=== PATIENT | female | born 1935 | race Caucasian/White ===

== ENCOUNTER → 2017-07-14 | Outpatient (CLI) | payer OTHER ==
--- NOTE | 2017-07-14 15:18 | MAMMOGRAPHY REPORT ---
BILATERAL DIGITAL SCREENING MAMMOGRAM WITH CAD: 07/14/2017 CLINICAL HISTORY: Routine screening. Patient has no complaints. TECHNIQUE: Bilateral CC and MLO views were obtained. Current study was also evaluated with a Compute r Aided Detection (CAD) system. COMPARISON: Comparison is made to exams dated: 07/08/2016 mammogram, 07/03/2015 mammogram, 01/04/2015 mammogram, 07/06/2014 mammogram, 06/30/2014 mammogram, and 06/29/2013 mammogram - [facility]. BREAST COMPOSITION: The tissue of both breasts is extremely dense, which lowers the sensitivity of m ammography. FINDINGS: Circular dense more markers overlie the left upper outer quadrant, and a linear dense scar marker overlies the right superior breast. There are moderate vascular calcifications bilaterally. A stable circumscribed benign mass in the right upper outer quadrant is stable dating back to at t 2009, therefore likely benign. No new suspicious mass, architectural distortion or cluster of micr ocalcifications is seen. IMPRESSION: ACR BI-RADS CATEGORY 1: NEGATIVE There is no mammographic evidence of malignancy. A 1 year screening mammogram is recommended. The pa tient will receive written notification of the results. Approximately 10% of breast cancers are not detected with mammography. A negative mammographic report should not delay biopsy if a clinically suggestive mass is present. Nai Winkler M.D. ay/:07/14/2017 13:47:52 Mechanical Maintenance Technician: Keira Reeves RT(R)(M)(BD), [facility] letter sent: Normal 1/2 BI-RADS Code: ACR BI-RADS Category 1: Negative
== END | disposition home or self-care (01) ==
LOC: C.MAMM 11:01
PROVIDERS: ATTEND Family Medicine
DX: Z12.31 Encounter for screening mammogram for malignant neoplasm of breast (principal)

== ENCOUNTER 2018-03-26 10:02 | Inpatient (IN) | payer OTHER ==
[~2018-03-26] VITALS: Ht 154.9 cm; Wt 48.6 kg
[2018-03-26] MEDS ORDERED: SODIUM CHLORIDE 0.9% 1000ML 1,000 ML IV STA (10:18)
[2018-03-26 10:39] LABS: BASO % 0.2 %; BASO ABS # 0.01 K/uL (0-0.2); EOS % 2.2 %; EOS ABS # 0.11 K/uL (0-0.5); HEMATOCRIT 40.9 % (37-47); HEMOGLOBIN 14.1 g/dL (12.0-16.0); IG# 0.01 K/uL (0.00-0.02); LYMPH % 26.7 %; LYMPH ABS # 1.36 K/uL (1.2-3.4); MEAN CELL VOLUME 89.7 fL (80-100); MEAN CORPUSCULAR HEMOGLOBIN 30.9 pg (25-34); MEAN CORPUSCULAR HGB CONC 34.5 g/dl (32-36); MEAN PLATELET VOLUME 10.6 fL (7.4-10.4); MONO % 10.4 %; MONO ABS # 0.53 K/uL (0.11-0.59); NEUT % 60.3 %; NEUT ABS # 3.07 K/uL (1.4-6.5); PLATELET COUNT 250 K/uL (130-400); RED CELL DISTRIBUTION WIDTH CV 16.1 % (11.5-14.5); RED CELL DISTRIBUTION WIDTH SD 52.7 fL (36.4-46.3); WHITE BLOOD COUNT 5.09 K/uL (4.8-10.8)
[2018-03-26] MEDS ORDERED: ATV/1 PO (10:42)
[2018-03-26] MEDS ORDERED: PRT/20 PO (10:42)
[2018-03-26] MEDS ORDERED: SUCR1TAB29 PO ×2 (10:42)
[2018-03-26] MEDS ORDERED: TRAV0.00 OPB (10:42)
[2018-03-26] MEDS ORDERED: CALC667C4 PO (10:42)
[2018-03-26] MEDS ORDERED: SERT25TA PO (10:42)
[2018-03-26] MEDS ORDERED: ATOR10TA82 PO (10:42)
[2018-03-26] MEDS ORDERED: ATEN-173 PO (10:42)
[2018-03-26] MEDS ORDERED: MULTCAP33 PO (10:42)
[2018-03-26 11:06] LABS: ALBUMIN 3.8 gm/dl (3.4-5.0); CALCIUM 8.8 mg/dl (8.5-10.1); CREATININE 0.7 mg/dl (0.60-1.20); POTASSIUM 3.4 mmol/L (3.5-5.1); TOTAL PROTEIN 7.6 gm/dl (6.4-8.2)
--- NOTE | 2018-03-26 11:20 | DIAGNOSTIC IMAGING REPORT ---
ABDOMINAL ULTRASOUND, RIGHT UPPER QUADRANT HISTORY: jaundice/gall and pancrease . COMPARISON: None. FINDINGS: Pancreas: There are 2 hypoechoic masses seen within the head and body of the pancreas with the largest measuring 3.7 cm. The smaller mass at the body of the pancreas measures 2.7 cm. There appears to be proximal pancreatic duct dilatation at the tail. Liver: No hepatic masses. Moderate intrahepatic bile duct dilatation. Gallbladder: Borderline gallbladder wall thickening at 3 mm. There is sludge within the gallbladder lumen. CBD: Dilated up to 1.7 cm in diameter. Right kidney: No hydronephrosis. A 1.2 cm cyst. IMPRESSION: 1. There are 2 adjacent hypoechoic masses within the head and body the pancreas. This could represent primary pancreatic malignancy or metastatic disease. 2. Moderate to severe bile duct dilatation. 3. Borderline gallbladder wall thickening with gallbladder sludge. 4. Dedicated contrast-enhanced abdominal CT is recommended to evaluate the pancreatic masses. Electronically signed by: Sandro Canales M.D. 03/26/2018 11:18 AM Dictated Date/Time: 03/26/2018 11:14 AM
[2018-03-26 12:50] LABS: INR 1.1 (0.9-1.1)
[2018-03-26] MEDS ORDERED: OPTIRAY 320 IV PRN (13:00)
[2018-03-26] MEDS ORDERED: MULT-663 PO (13:27)
[2018-03-26] MEDS ORDERED: ACETAMINOPHEN 325 MG TAB PO PRN (13:30)
[2018-03-26] MEDS ORDERED: ONDANSETRON INJ 2 MG/ML 2 ML VIAL IV PRN (13:30)
[2018-03-26] MEDS ORDERED: POTASSIUM CHLORIDE 10 MEQ TABCR PO STA (13:31)
--- NOTE | 2018-03-26 14:07 | DIAGNOSTIC IMAGING REPORT ---
ABDOMINAL CT WITH AND WITHOUT INTRAVENOUS CONTRAST, PANCREAS PROTOCOL HISTORY: obstructive jaundice - please use pancreatic protocol TECHNIQUE: Multiaxial CT images of the abdomen were performed both before and after the intravenous administration of contrast to evaluate the pancreas. COMPARISON STUDY: Abdominal ultrasound 03/26/2018. FINDINGS: Infiltrative heterogeneous mass/masses within the pancreatic head and body containing a few areas of cystic/necrotic change. Total area of abnormality measures approximately 4.7 cm. Dominant cystic/necrotic focus within the pancreatic head measures 1.5 cm. This abuts and displaces the gastric antrum but does not appear to invade into the stomach. The proximal main pancreatic duct at the tail is dilated up to 6 mm due to the obstructive mass. There is also severe intra and extrahepatic bile duct dilatation with the common bile duct measuring 1.6 cm in diameter. The gallbladder is distended. There is mild gallbladder wall thickening. No significant peripancreatic lymphadenopathy. The superior mesenteric vein is partially compressed but remains patent. No soft tissue abnormality surrounding the superior mesenteric artery. The lung bases are clear. No suspicious lytic or blastic osseous lesions. No hepatic or splenic masses. The adrenal glands are unremarkable. Normal caliber abdominal aorta. The visualized loops of bowel show no wall thickening or obstruction. Mild inflammatory change surrounding the pancreatic head. Dominant cystic/necrotic focus within the pancreatic head measures 1.5 cm. There is a 1 cm right renal cyst. No hydronephrosis. IMPRESSION: 1. Confirmation of the infiltrative and heterogeneous mass/masses within the pancreatic head and body. This measures a total area of approximately 4.7 cm. This is highly suspicious for pancreatic adenocarcinoma. ERCP is recommended for further evaluation. 2. Severe intra and extra hepatic bile duct dilatation due to obstruction of the distal common bile duct from the pancreatic mass. 3. Distended gallbladder with mild gallbladder wall thickening. Electronically signed by: Sandro Canales M.D. 03/26/2018 2:06 PM Dictated Date/Time: 03/26/2018 1:53 PM
[2018-03-26] MEDS ORDERED: DORZ2SOL19 OP (14:16)
--- NOTE | 2018-03-26 14:29 | History and Physical ---
History & Physical Date & Time of Service: Mar 26, 2018 ~ 13:00 Chief Complaint: Jaundice Primary Care Physician: Elena Allred D.O. History of Present Illness 82-year-old female who presents the ED with jaundice. Patient reports her son initially noted the jaundice about 2 weeks ago however did not mention anything to her. Whenever he saw her last night, he noted the jaundice was much worse. 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 She reports she has been having upper abdominal pain for the past several months. She has been treated for GERD. She reports a 20 pound weight loss over the past 10 years and more recently 5 pounds over the past 3 months. She feels like her appetite has been okay. She has been eating blander foods secondary to being diagnosed with GERD. She has chronic loose stools and has noted that her stools have been white over the past few days. She denies nausea vomiting. Abdominal pain will sometimes radiate up into the chest however patient denies other forms of chest pain and shortness of breath. No lightheadedness, dizziness, diaphoresis, syncopal events. No fevers chills. She denies any urinary symptoms. In the ED, patient was found to have a transaminitis. Liver US showing 2 adjacent hypoechoic masses within the head and body the pancreas, Moderate to severe bile duct dilatation, Borderline gallbladder wall thickening with gallbladder sludge. Patient was given IVF. GI has already evaluated the patient in the ED. Past Medical/Surgical History Medical Problems: (1) Depression Status: Chronic (2) Dyslipidemia Status: Chronic (3) Glaucoma Status: Chronic (4) Hypertension Status: Chronic (5) Macular degeneration Status: Chronic (6) mucinous pancreatic cyst Status: Chronic (7) Osteoporosis Status: Chronic Surgical Problems: (1) H/O dilation and curettage Status: Chronic (2) H/O umbilical hernia repair Status: Chronic (3) History of appendectomy Status: Chronic (4) Hx of tonsillectomy Status: Chronic (5) S/P tubal ligation Status: Chronic Family History FH: breast cancer SISTER SISTER FH: leukemia SISTER FH: lung cancer BROTHER FH: pancreatic cancer SISTER Social History Smoking Status: Never Smoker Alcohol Use: none Immunizations History of Influenza Vaccine: Yes Influenza Vaccine Date: May 19, 2017 History of Tetanus Vaccine?: Yes Tetanus Immunization Date: Nov 26, 2017 History of Pneumococcal: Yes Pneumococcal Date: Feb 28, 1961 Allergies Coded Allergies: Lisinopril (Unverified Adverse Reaction, Unknown, cough , 03/26/18) Home Medications Scheduled Atenolol (Tenormin), 12.5 MG PO QAM Atorvastatin (Lipitor), 10 MG PO HS Dorzolamide Hcl (Trusopt Oph), 1 DROPS OP BID Lorazepam (Ativan), 1 MG PO HS Multiple Minerals W/ Vitamins (Citracal Plus), 1 TAB PO DAILY Multiple Vitamins W/ Minerals (Preservision Areds), 1 CAP PO DAILY Pantoprazole (Protonix), 20 MG PO DAILY Sertraline (Zoloft), 25 MG PO DAILY Sucralfate (Carafate), 1 GM PO TIDM Sucralfate (Carafate), 1 GM PO HS Travoprost (Travatan Z), 1 DROPS OPB HS Review of Systems ROS per HPI, all other systems reviewed and negative Physical Exam Vital Signs Date Time Temp Pulse Resp B/P (MAP) Pulse Ox O2 Delivery O2 Flow Rate FiO2 03/26/18 13:18 177/95 96 03/26/18 12:02 67 19 201/115 96 Room Air 03/26/18 11:40 219/94 03/26/18 10:06 36.6 61 18 205/95 98 Room Air General Appearance: no apparent distress, + thin Head: normocephalic, atraumatic Eyes: normal inspection, EOMI, + pertinent finding (Sclera icterus) ENT: hearing grossly normal, + pertinent finding (Mucous members dry) Neck: supple, no JVD, trachea midline Respiratory/Chest: lungs clear, normal breath sounds, no respiratory distress Cardiovascular: regular rate, rhythm, no edema, normal peripheral pulses Abdomen/GI: normal bowel sounds, soft, no organomegaly, + tenderness (Upper abdomen) Extremities/Musculoskelatal: normal inspection, no calf tenderness, normal capillary refill Neurologic/Psych: no motor/sensory deficits, alert, normal mood/affect, oriented x 3 Skin: warm/dry, + jaundice Diagnostics Laboratory Results Results Past 24 Hours Test 03/26/18 10:25 03/26/18 12:26 Range/Units White Blood Count 5.09 4.8-10.8 K/uL Red Blood Count 4.56 4.2-5.4 M/uL Hemoglobin 14.1 12.0-16.0 g/dL Hematocrit 40.9 37-47 % Mean Corpuscular Volume 89.7 80-100 fL Mean Corpuscular Hemoglobin 30.9 25-34 pg Mean Corpuscular Hemoglobin Concent 34.5 32-36 g/dl Platelet Count 250 130-400 K/uL Mean Platelet Volume 10.6 7.4-10.4 fL Neutrophils (%) (Auto) 60.3 % Lymphocytes (%) (Auto) 26.7 % Monocytes (%) (Auto) 10.4 % Eosinophils (%) (Auto) 2.2 % Basophils (%) (Auto) 0.2 % Neutrophils # (Auto) 3.07 1.4-6.5 K/uL Lymphocytes # (Auto) 1.36 1.2-3.4 K/uL Monocytes # (Auto) 0.53 0.11-0.59 K/uL Eosinophils # (Auto) 0.11 0-0.5 K/uL Basophils # (Auto) 0.01 0-0.2 K/uL RDW Standard Deviation 52.7 36.4-46.3 fL RDW Coefficient of Variation 16.1 11.5-14.5 % Immature Granulocyte % (Auto) 0.2 % Immature Granulocyte # (Auto) 0.01 0.00-0.02 K/uL Urine Color DK YELLOW Urine Appearance CLEAR CLEAR Urine pH 7.0 4.5-7.5 Urine Specific [place] 1.006 1.000-1.030 Urine Protein NEG NEG Urine Glucose (UA) NEG NEG Urine Ketones NEG NEG Urine Occult Blood NEG NEG Urine Nitrite NEG NEG Urine Bilirubin 2+ NEG Urine Urobilinogen NEG NEG Urine Leukocyte Esterase MODERATE NEG Urine WBC (Auto) 1-5 0-5 /hpf Urine RBC (Auto) 0-4 0-4 /hpf Urine Hyaline Casts (Auto) 1-5 0-5 /lpf Urine Epithelial Cells (Auto) 5-10 0-5 /lpf Urine Bacteria (Auto) NEG NEG Sodium Level 129 136-145 mmol/L Potassium Level 3.4 3.5-5.1 mmol/L Chloride Level 96 98-107 mmol/L Carbon Dioxide Level 27 21-32 mmol/L Anion Gap 6.0 3-11 mmol/L Blood Urea Nitrogen 7 7-18 mg/dl Creatinine 0.70 0.60-1.20 mg/dl Est Creatinine Clear Calc Drug Dose 46.7 ml/min Estimated GFR () 92.9 Estimated GFR (Non- 80.1 BUN/Creatinine Ratio 9.8 10-20 Random Glucose 93 70-99 mg/dl Calcium Level 8.8 8.5-10.1 mg/dl Total Bilirubin 11.5 0.2-1 mg/dl Direct Bilirubin 9.5 0-0.2 mg/dl Aspartate Amino Transf (AST/SGOT) 247 15-37 U/L Alanine Aminotransferase (ALT/SGPT) 314 12-78 U/L Alkaline Phosphatase 583 45-117 U/L Total Protein 7.6 6.4-8.2 gm/dl Albumin 3.8 3.4-5.0 gm/dl Lipase 453 73-393 U/L Prothrombin Time 11.4 9.0-12.0 SECONDS Prothromb Time International Ratio 1.1 0.9-1.1 Diagnostic Radiology LIVER US IMPRESSION: 1. There are 2 adjacent hypoechoic masses within the head and body the pancreas. This could represent primary pancreatic malignancy or metastatic disease. 2. Moderate to severe bile duct dilatation. 3. Borderline gallbladder wall thickening with gallbladder sludge. 4. Dedicated contrast-enhanced abdominal CT is recommended to evaluate the pancreatic masses. Impression Assessment and Plan TRANSAMINITIS HISTORY OF MUCINOUS PANCREATIC CYST -Admit to [facility] -Patient presenting from home with reports of jaundice; patient with history of mucinous pancreatic cyst; in the ED, found to have transaminitis and liver US showing pancreatic masses in moderate to bile duct dilatation -Consider choledocholithiasis versus obstruction from mass -Case discussed with Emerita Nguyen PA-C -planning on CT ABD/pelvis today and ERCP tomorrow -Clear liquids, n.p.o. after midnight HYPERTENSION -BP elevated, possibly due to pain and anxiety however will increase atenolol from 12.5 mg daily to 25 mg daily GERD -Continue PPI and Carafate DYSLIPIDEMIA -Holding statin due to transaminitis CODE STATUS -Patient is a full code as per my discussion with her. DVT PROPHYLAXIS -SCDs due to invasive procedure tomorrow DISPOSITION -In my clinical judgment this beneficiary meets acute admission criteria, established by [facility], that includes being hospitalized through two midnights. Attending addendum: The patient was seen and examined in the emergency room She was noticed to have jaundiced for the last 1 week Her only complaints were pain in the epigastrium that sometime goes to the left shoulder but no nausea no vomiting no problem with bowel habit She was noted to have obstructive secondary to pancreatic mass On examination Yellow coloration of the sclera and skin No apparent distress Hemodynamically stable Chest-clear to auscultate bilaterally Heart-S1-S2 no murmur Abdomen-tender epigastrium and right upper quadrant No definite mass, bowel sounds present Extremities-no edema [employer]ER-alert ,awake and oriented 3 No focal neuro deficit Admission labs and imaging studies reviewed Has obstructive jaundice secondary to pancreatic mass with a history of mucinous pancreatic cyst under observation GI consulted for ERCP and further evaluation of the mass Agree with assessment and plan as outlined above Dr. Nicolas Andrade Resuscitation Status VTE Prophylaxis Will order VTE Prophylaxis: Yes
--- NOTE | 2018-03-26 15:03 | Gastrointestinal Consultation ---
Gastrointestinal Consultation Date of Consultation: Mar 26, 2018 Attending Physician: Italia Rodriguez Consulting Physician: America Field MD Reason for Consultation: Pancreatic mass/obstructive jaundice History of Present Illness Patient is an 82 year old female with a hx of pancreatic IPMN and dilated pancreatic duct, typically followed in our clinic by Britton Winston NP, and Dr. Zenon Colon. She was last seen in clinic 01/01/18 and at that time was doing fairly well, complaining of only intermittent abdominal pain, improved with Protonix, once daily. Over the past 2-3 months, she has been having increased abdominal pain, radiating to the right shoulder and into the back, worse post prandially, and her PPI was increased, and carafate was added. This has not provided relief. Work up was ordered, to include labs and a RUQ ultrasound, scheduled for 04/01/18, however she was at the doctor's office with her as he had an appointment, and asked to see a nurse as she was still not feeling well. The nurse sent her to the ED as she appeared significantly jaundiced. Work up in the ED thus far included labs and an abdominal ultrasound. LFTs are elevated, with an AST of 247, ALT of 314, ALP of 583, Tbili of 11.5 and Dbili of 9.5. Lipase is 453. Ultrasound showed 2 adjacent masses at the head and body of the pancreas, moderate to severe biliary ductal dilation to 1.7cm, borderline gb wall thickening and gb sludge. LFTs in December were normal. MRI of the pancreas 12/11/17: Persistent dilatation of the pancreatic duct diffusely with possible side branch IPMNs in the pancreatic tail, similar to prior exam. Pancreas duct dilation to 9.6 mm EUS 05/13/17: A hypoechoic lesion suggestive of a cyst was identified in the~pancreatic neck. It communicates with the pancreatic duct. The lesion measured 15 mm by 10 mm in maximal cross-sectional diameter. There was a single compartment without septae. The outer wall of the lesion wasthin. There was no associated mass. There was no internal debris withinthe fluid-filled cavity. The PD was mildly dilated upstream of the cyst,5 mm in the body. Diagnostic needle aspiration for fluid was performed. Patient reports a 2+ month hx of epigastric abdominal pain, radiating to the right shoulder and into the back. She denies any significant n/v or heartburn. Bowels are moving regularly, however they have been penny colored for the past 7- 10 days. Urine is a little darker than normal by her admission as well. Jaundice has been noticeable per family for almost 2 weeks. She denies any fevers. Poor appetite and +weight loss of 5+ pounds over the past few weeks as well. Past Medical/Surgical History Past Medical History: Pancreatic IPMN, HTN, glaucoma, macular degeneration, OP, insomnia Past Surgical History: Umbilical hernia repair, Tonsillectomy, appendectomy, tubal ligation, D&C Family History FH: breast cancer SISTER SISTER FH: leukemia SISTER FH: lung cancer BROTHER FH: pancreatic cancer SISTER Social History Smoking Status: Never Smoker Allergies Coded Allergies: Lisinopril (Unverified Adverse Reaction, Unknown, cough , 03/26/18) Current Medications Home Meds and Scripts Medications Dose Route/Sig Max Daily Dose Days Date Category Trusopt Oph (Dorzolamide Hcl) 2 % [place] 1 Drops OP BID 03/26/18 Reported Citracal Plus (Multiple Minerals W/ Vitamins) 1 Tab Tab 1 Tab PO DAILY 03/26/18 Reported Carafate (Sucralfate) 1 Gm Tab 1 Gm PO HS 03/26/18 Reported Carafate (Sucralfate) 1 Gm Tab 1 Gm PO TIDM 03/26/18 Reported Zoloft (Sertraline HCl) 25 Mg Tab 25 Mg PO DAILY 03/26/18 Reported Ativan (Lorazepam) 1 Mg Tab 1 Mg PO HS 03/26/18 Reported Travatan Z (Travoprost) 0.004 % Gaudencio 1 Drops OPB HS 03/26/18 Reported Lipitor (Atorvastatin Calcium) 10 Mg Tab 10 Mg PO HS 03/26/18 Reported Tenormin (Atenolol) 25 Mg Tab 12.5 Mg PO QAM 03/26/18 Reported Protonix (Pantoprazole Sodium) 20 Mg Tab 20 Mg PO DAILY 03/26/18 Reported Preservision Areds (Multiple Vitamins W/ Minerals) 1 Cap Cap 1 Cap PO DAILY 03/26/18 Reported Review of Systems Constitutional: + weight loss, No fever, No chills Eyes: No worsening of vision, No eye pain ENT: + hearing loss Respiratory: No cough, No shortness of breath Cardiac: No chest pain Abdomen: + see HPI Musculoskeletal: No joint pain, No muscle pain Female : No dysuria Neuro: No memory loss Psych: No problem reported Heme: No abnormal bleeding/bruising Endo: No excessive thirst, No excessive urination Skin: No rash, No itch Physical Exam Date Time Temp Pulse Resp B/P (MAP) Pulse Ox O2 Delivery O2 Flow Rate FiO2 03/26/18 14:22 70 201/93 96 03/26/18 13:18 177/95 96 03/26/18 12:02 67 19 201/115 96 Room Air 03/26/18 11:40 219/94 03/26/18 10:06 36.6 61 18 205/95 98 Room Air General Appearance: no apparent distress Eyes: + pertinent finding (icterus) ENT: + pertinent finding (mild hearing loss) Neck: supple Respiratory/Chest: lungs clear, normal breath sounds, no respiratory distress Cardiovascular: regular rate, rhythm Abdomen: normal bowel sounds, soft, + tenderness (epigastric) Extremities: no pedal edema Neurologic/Psych: alert Skin: + jaundice Laboratory Results Last 24 Hours Test 03/26/18 10:25 03/26/18 12:26 White Blood Count 5.09 K/uL Red Blood Count 4.56 M/uL Hemoglobin 14.1 g/dL Hematocrit 40.9 % Mean Corpuscular Volume 89.7 fL Mean Corpuscular Hemoglobin 30.9 pg Mean Corpuscular Hemoglobin Concent 34.5 g/dl Platelet Count 250 K/uL Mean Platelet Volume 10.6 fL Neutrophils (%) (Auto) 60.3 % Lymphocytes (%) (Auto) 26.7 % Monocytes (%) (Auto) 10.4 % Eosinophils (%) (Auto) 2.2 % Basophils (%) (Auto) 0.2 % Neutrophils # (Auto) 3.07 K/uL Lymphocytes # (Auto) 1.36 K/uL Monocytes # (Auto) 0.53 K/uL Eosinophils # (Auto) 0.11 K/uL Basophils # (Auto) 0.01 K/uL RDW Standard Deviation 52.7 fL RDW Coefficient of Variation 16.1 % Immature Granulocyte % (Auto) 0.2 % Immature Granulocyte # (Auto) 0.01 K/uL Urine Color DK YELLOW Urine Appearance CLEAR Urine pH 7.0 Urine Specific [place] 1.006 Urine Protein NEG Urine Glucose (UA) NEG Urine Ketones NEG Urine Occult Blood NEG Urine Nitrite NEG Urine Bilirubin 2+ Urine Urobilinogen NEG Urine Leukocyte Esterase MODERATE Urine WBC (Auto) 1-5 /hpf Urine RBC (Auto) 0-4 /hpf Urine Hyaline Casts (Auto) 1-5 /lpf Urine Epithelial Cells (Auto) 5-10 /lpf Urine Bacteria (Auto) NEG Sodium Level 129 mmol/L Potassium Level 3.4 mmol/L Chloride Level 96 mmol/L Carbon Dioxide Level 27 mmol/L Anion Gap 6.0 mmol/L Blood Urea Nitrogen 7 mg/dl Creatinine 0.70 mg/dl Est Creatinine Clear Calc Drug Dose 46.7 ml/min Estimated GFR () 92.9 Estimated GFR (Non- 80.1 BUN/Creatinine Ratio 9.8 Random Glucose 93 mg/dl Calcium Level 8.8 mg/dl Magnesium Level 2.0 mg/dl Total Bilirubin 11.5 mg/dl Direct Bilirubin 9.5 mg/dl Aspartate Amino Transf (AST/SGOT) 247 U/L Alanine Aminotransferase (ALT/SGPT) 314 U/L Alkaline Phosphatase 583 U/L Total Protein 7.6 gm/dl Albumin 3.8 gm/dl Lipase 453 U/L Prothrombin Time 11.4 SECONDS Prothromb Time International Ratio 1.1 Impression Patient is an 82 year old female with a hx of pancreatic IPMN, stable on MRI just in December of this year. EUS in May/2017 with FNA. Presenting with obstructive jaundice - elevated LFTs and imaging showing a significantly enlarged CBD along with biliary sludge. Plan -CT scan a/p with contrast will be obtained -Monitor and correct electrolytes as appropriate -clear liquid diet with NPO after midnight -ERCP with stent placement tomorrow morning. Will then plan EUS next week - if patient still admitted, will plan to do this on Friday. Otherwise, will bring patient back as an outpatient. I performed a history and physical examination of the patient, including specifically soft, nontender abdomen, I have discussed the patient's management with Theresa Nguyen PA-C. Please refer to the PA's note for the documented findings and plan of care. Obstructive Jaundice, normal WBC, no clinical cholangitis. No gallstones. Has IPMN in the past and imaging now suggestive of HOP malignancy. Will plan for ERCP tomorrow for biliary decompression. EUS on Friday for FNA of the mass. Correct electrolytes.
[2018-03-26 15:36] VITALS: BP 177/71; PULSE 61; TEMP 36.4; O2SAT 96; Ht 154.9 cm; Wt 48.6 kg
[2018-03-26] MEDS: SODIUM CHLORIDE 0.9% 1000ML 1,000 ML IV SCH (16:48)
[2018-03-26 17:15] VITALS: BP 194/95
--- NOTE | 2018-03-26 17:31 | EMERGENCY ROOM VISIT NOTE ---
History Report prepared by Donn: Nora Green Under the Supervision of: Dr. Shadi Lee D.O. First contact with patient: 10:09 Chief Complaint: GI ASSESSMENT Stated Complaint: JAUNDICE History of Present Illness The patient is a 82 year old female who presents to the Emergency Room with complaints of needing a GI assessment. She states she has been treated for GERD recently and saw her PCP 2 days ago. She told her PCP, Dr. Allred of [facility], about abdominal pain located under her rib cage, so an abdominal US was ordered for next week. Last night, the patient's son told her she looked jaundiced, and she was advised to come to the ED. Her states he has not noticed her yellowish coloring because "I'm too close to her". The patient has macular degeneration and states she can't see her reflection in the mirror. She denies any recent nausea, vomiting or urinary symptoms. She states she has not been eating fatty foods out of fear of making her pain worse. The patient notes she had a scope last year that showed "a cyst in one of my pancreatic ducts". She followed with JAC Donaldson, of [facility] afterwards. Source of History: patient Onset: [employer] Position: abdomen Timing: constant Associated Symptoms: + abdominal pain, No nausea, No vomiting, No urinary symptoms Review of Systems See HPI for pertinent positives & negatives. A total of 10 systems reviewed and were otherwise negative. Past Medical & Surgical Medical Problems: (1) Depression (2) Dyslipidemia (3) Glaucoma (4) Hypertension (5) Macular degeneration (6) mucinous pancreatic cyst (7) Osteoporosis Surgical Problems: (1) H/O dilation and curettage (2) H/O umbilical hernia repair (3) History of appendectomy (4) Hx of tonsillectomy (5) S/P tubal ligation Social History Smoking Status: Never Smoker Alcohol Use: none Drug Use: none Marital Status: Housing Status: lives with family Occupation Status: retired Current/Historical Medications Scheduled Atenolol (Tenormin), 12.5 MG PO QAM Atorvastatin (Lipitor), 10 MG PO HS Dorzolamide Hcl (Trusopt Oph), 1 DROPS OP BID Lorazepam (Ativan), 1 MG PO HS Multiple Minerals W/ Vitamins (Citracal Plus), 1 TAB PO DAILY Multiple Vitamins W/ Minerals (Preservision Areds), 1 CAP PO DAILY Pantoprazole (Protonix), 20 MG PO DAILY Sertraline (Zoloft), 25 MG PO DAILY Sucralfate (Carafate), 1 GM PO TIDM Sucralfate (Carafate), 1 GM PO HS Travoprost (Travatan Z), 1 DROPS OPB HS Allergies Coded Allergies: Lisinopril (Unverified Adverse Reaction, Unknown, cough , 03/26/18) Physical Exam Vital Signs Date Time Temp Pulse Resp B/P (MAP) Pulse Ox O2 Delivery O2 Flow Rate FiO2 03/26/18 13:18 177/95 96 03/26/18 12:02 67 19 201/115 96 Room Air 03/26/18 11:40 219/94 03/26/18 10:06 36.6 61 18 205/95 98 Room Air Physical Exam GENERAL: Sitting up in bed, alert, well appearing, well nourished, no distress, non-toxic EYE EXAM: Scleral icterus. OROPHARYNX: no exudate, no erythema, lips, buccal mucosa, and tongue normal and mucous membranes are moist NECK: supple, no nuchal rigidity, no adenopathy, non-tender LUNGS: Clear to auscultation. Normal chest wall mechanics HEART: no murmurs, S1 normal and S2 normal ABDOMEN: abdomen soft, minimal tenderness in RUQ, normo-active bowel sounds, no masses, no rebound or guarding. BACK: Back is symmetrical on inspection and there is no deformity, no midline tenderness, no CVA tenderness. SKIN: Diffuse jaundice throughout entire body. UPPER EXTREMITIES: upper extremities are grossly normal. LOWER EXTREMITIES: No pitting edema. NEURO EXAM: Normal sensorium, cranial nerves II-XII grossly intact, normal speech, no gross weakness of arms, no gross weakness of legs. Gross sensation intact. Medical Decision & Procedures ER Provider Diagnostic Interpretation: Radiology results as stated below per my review and the radiologist's interpretation: ABDOMINAL ULTRASOUND, RIGHT UPPER QUADRANT HISTORY: jaundice/gall and pancrease . COMPARISON: None. FINDINGS: Pancreas: There are 2 hypoechoic masses seen within the head and body of the pancreas with the largest measuring 3.7 cm. The smaller mass at the body of the pancreas measures 2.7 cm. There appears to be proximal pancreatic duct dilatation at the tail. Liver: No hepatic masses. Moderate intrahepatic bile duct dilatation. Gallbladder: Borderline gallbladder wall thickening at 3 mm. There is sludge within the gallbladder lumen. CBD: Dilated up to 1.7 cm in diameter. Right kidney: No hydronephrosis. A 1.2 cm cyst. IMPRESSION: 1. There are 2 adjacent hypoechoic masses within the head and body the pancreas. This could represent primary pancreatic malignancy or metastatic disease. 2. Moderate to severe bile duct dilatation. 3. Borderline gallbladder wall thickening with gallbladder sludge. 4. Dedicated contrast-enhanced abdominal CT is recommended to evaluate the pancreatic masses. Electronically signed by: Sandro Canales M.D. 03/26/2018 11:18 AM Laboratory Results 03/26/18 10:25 Red Blood Count 4.56, Mean Corpuscular Volume 89.7, Mean Corpuscular Hemoglobin 30.9, Mean Corpuscular Hemoglobin Concent 34.5, Mean Platelet Volume 10.6, Neutrophils (%) (Auto) 60.3, Lymphocytes (%) (Auto) 26.7, Monocytes (%) (Auto) 10.4, Eosinophils (%) (Auto) 2.2, Basophils (%) (Auto) 0.2, Neutrophils # (Auto ) 3.07, Lymphocytes # (Auto) 1.36, Monocytes # (Auto) 0.53, Eosinophils # (Auto ) 0.11, Basophils # (Auto) 0.01 03/26/18 10:25 Test 03/26/18 10:25 03/26/18 12:26 White Blood Count 5.09 K/uL (4.8-10.8) Red Blood Count 4.56 M/uL (4.2-5.4) Hemoglobin 14.1 g/dL (12.0-16.0) Hematocrit 40.9 % (37-47) Mean Corpuscular Volume 89.7 fL (80-100) Mean Corpuscular Hemoglobin 30.9 pg (25-34) Mean Corpuscular Hemoglobin Concent 34.5 g/dl (32-36) Platelet Count 250 K/uL (130-400) Mean Platelet Volume 10.6 fL (7.4-10.4) Neutrophils (%) (Auto) 60.3 % Lymphocytes (%) (Auto) 26.7 % Monocytes (%) (Auto) 10.4 % Eosinophils (%) (Auto) 2.2 % Basophils (%) (Auto) 0.2 % Neutrophils # (Auto) 3.07 K/uL (1.4-6.5) Lymphocytes # (Auto) 1.36 K/uL (1.2-3.4) Monocytes # (Auto) 0.53 K/uL (0.11-0.59) Eosinophils # (Auto) 0.11 K/uL (0-0.5) Basophils # (Auto) 0.01 K/uL (0-0.2) RDW Standard Deviation 52.7 fL (36.4-46.3) RDW Coefficient of Variation 16.1 % (11.5-14.5) Immature Granulocyte % (Auto) 0.2 % Immature Granulocyte # (Auto) 0.01 K/uL (0.00-0.02) Urine Color DK YELLOW Urine Appearance CLEAR (CLEAR) Urine pH 7.0 (4.5-7.5) Urine Specific [place] 1.006 (1.000-1.030) Urine Protein NEG (NEG) Urine Glucose (UA) NEG (NEG) Urine Ketones NEG (NEG) Urine Occult Blood NEG (NEG) Urine Nitrite NEG (NEG) Urine Bilirubin 2+ (NEG) Urine Urobilinogen NEG (NEG) Urine Leukocyte Esterase MODERATE (NEG) Urine WBC (Auto) 1-5 /hpf (0-5) Urine RBC (Auto) 0-4 /hpf (0-4) Urine Hyaline Casts (Auto) 1-5 /lpf (0-5) Urine Epithelial Cells (Auto) 5-10 /lpf (0-5) Urine Bacteria (Auto) NEG (NEG) Anion Gap 6.0 mmol/L (3-11) Est Creatinine Clear Calc Drug Dose 46.7 ml/min Estimated GFR () 92.9 Estimated GFR (Non- 80.1 BUN/Creatinine Ratio 9.8 (10-20) Calcium Level 8.8 mg/dl (8.5-10.1) Magnesium Level 2.0 mg/dl (1.8-2.4) Total Bilirubin 11.5 mg/dl (0.2-1) Direct Bilirubin 9.5 mg/dl (0-0.2) Aspartate Amino Transf (AST/SGOT) 247 U/L (15-37) Alanine Aminotransferase (ALT/SGPT) 314 U/L (12-78) Alkaline Phosphatase 583 U/L (45-117) Total Protein 7.6 gm/dl (6.4-8.2) Albumin 3.8 gm/dl (3.4-5.0) Lipase 453 U/L (73-393) Prothrombin Time 11.4 SECONDS (9.0-12.0) Prothromb Time International Ratio 1.1 (0.9-1.1) Laboratory results per my review. Medications Administered Medications (Trade) Dose Ordered Sig/Neil Route Start Time Stop Time Status Last Admin Dose Admin Sodium Chloride 1,000 ml @ 999 mls/hr Q1H1M STAT IV 03/26/18 10:18 03/26/18 11:18 DC 03/26/18 10:38 999 MLS/HR ED Course ED COURSE: Vital signs were reviewed and showed the patient is hypertensive. The patients medical record was reviewed The above diagnostic studies were performed and reviewed. ED treatments and interventions as stated above. 1012: The patient was evaluated in room B11B. A complete history and physical examination was performed. 1018: NSS 1000 ml @ 999 mls/hr IV. 1136: I discussed the patients case with F[facility] Felder, [facility]. The patient will be further evaluated. 1241: I discussed the patients case with JAC Bill, [facility]. The patient will be further evaluated. 1245: Upon reevaluation, the patient is resting comfortably. I discussed my findings with the patient and she understands and agrees with the treatment plan. Based on the patients age, coexisting illnesses, exam and lab findings the decision to treat as an inpatient was made. The patient remained stable while under my care. The patient will be evaluated for further management. Medical Decision Differential diagnoses includes but is not limited to gastritis, peptic ulcer disease, GERD, gallbladder disease, pancreatitis, small bowel obstruction, acute coronary syndrome, pericarditis, ischemic bowel, irritable bowel disease, irritable bowel syndrome, appendicitis, diverticulitis, malignancy, hernia, urinary tract infection, torsion, perforation, trauma, infectious. Patient is an 82-year-old female who presents the ER for epigastric abdominal pain. Upon presentation patient is jaundiced. CBC was unremarkable. Mild hyponatremia. Bilirubin was elevated at 12. Patient had transaminitis at 300. Alk phos was elevated as well. Lipase was 450. Previous scopes show that she had a pancreatic cyst. Ultrasound the right upper quadrant shows 2 masses within the head of the pancreas. There is severe bile duct dilation. Gallbladder was also thickened and distended. I favor that this is all secondary to the pancreatic head mass. Discuss with GI who evaluated the patient at bedside. Discussed within total medicine patient was admitted for further workup. Patient was hypertensive declined pain medications. Medication Reconcilliation Current Medication List: was personally reviewed by me Blood Pressure Screening Patient's blood pressure: Elevated blood pressure Blood pressure disposition: Referred to PCP Consults Time Called: 1132 Consulting Physician: FABI Felder [facility] Returned Call: 1136 I discussed the patients case with FABI Felder [facility]. The patient will be further evaluated. Additional Consults: Time Called: 1240 Consulted Physician: [facility] Returned Call: 1241 Additional Comments: I discussed the patients case with JAC iBll [facility]. The patient will be further evaluated. Impression Primary Impression: Pancreatic mass Additional Impressions: Transaminitis Elevated bilirubin Hypertension Scribe Attestation The scribe's documentation has been prepared under my direction and personally reviewed by me in its entirety. I confirm that the note above accurately reflects all work, treatment, procedures, and medical decision making performed by me. Departure Information Dispostion Being Evaluated By Hospitalist Referrals Elena Allred D.O. (PCP) Patient Instructions My [facility] Problem Qualifiers Additional Impressions: Hypertension Hypertension type: unspecified Qualified Codes: I10 - Essential (primary) hypertension
[2018-03-26] MEDS: SUCRALFATE 1 GM TAB PO SCH ×2 (17:35→21:13)
--- NOTE | 2018-03-26 17:58 | Anesthesiology Progress Note ---
Pre-OP Anesthesia Assessment Date of Note Mar 26, 2018. Review patient information reviewed, chart reviewed, labs reviewed, acceptable for surgery Notes Elderly female presents with obstructive jaundice and found to have a pancreatic mass. Scheduled for ERCP. PMH is significant for HTN, hyperlipidemia, GERD and depression. She has had general anesthesia in the past without problems. GA explained. She expressed understanding and signed informed consent. EKG requested as baseline and is pending.
[2018-03-26] MEDS ORDERED: HydrALAZINE HCL 20 MG/ML VIAL IV. PRN (18:45)
[2018-03-26] MEDS ORDERED: HydrALAZINE HCL 20 MG/ML VIAL ONE (19:33)
[2018-03-26 19:36] VITALS: BP 191/92; PULSE 58
[2018-03-26] MEDS: DORZOLAMIDE HCL 2% OPH SOLN 10 ML BTL OP SCH (19:45)
[2018-03-26] MEDS ORDERED: LORAZEPAM 0.5 MG TAB PO PRN (20:45)
[2018-03-26 21:02] VITALS: BP 158/77; PULSE 69
[2018-03-26] MEDS: HYDROmorphone INJ 0.5 MG/0.5 ML SYR IV PRN (21:12)
[2018-03-26] MEDS: TRAVOPROST Z 0.004% OPH SOLN 2.5 ML BTL OPB SCH (21:13)
[2018-03-26 23:07] VITALS: BP 125/66; PULSE 62; TEMP 36.7; O2SAT 95
[2018-03-27] MEDS: SODIUM CHLORIDE 0.9% 1000ML 1,000 ML IV SCH ×3 (02:40→23:38)
[2018-03-27] MEDS: HYDROmorphone INJ 0.5 MG/0.5 ML SYR IV PRN (02:45)
[2018-03-27 05:41] LABS: HEMATOCRIT 35.2 % (37-47); HEMOGLOBIN 12.2 g/dL (12.0-16.0); MEAN CELL VOLUME 88.9 fL (80-100); MEAN CORPUSCULAR HEMOGLOBIN 30.8 pg (25-34); MEAN CORPUSCULAR HGB CONC 34.7 g/dl (32-36); MEAN PLATELET VOLUME 10.2 fL (7.4-10.4); PLATELET COUNT 210 K/uL (130-400); WHITE BLOOD COUNT 4.68 K/uL (4.8-10.8)
[2018-03-27 06:12] LABS: ALBUMIN 2.9 gm/dl (3.4-5.0); CALCIUM 7.9 mg/dl (8.5-10.1); CREATININE 0.47 mg/dl (0.60-1.20); POTASSIUM 3.4 mmol/L (3.5-5.1)
[2018-03-27 06:14] LABS: TOTAL PROTEIN 5.9 gm/dl (6.4-8.2)
[2018-03-27 07:09] VITALS: BP 144/78; PULSE 73; TEMP 36.6; O2SAT 97
[2018-03-27] MEDS: SUCRALFATE 1 GM TAB PO SCH ×4 (08:00→21:44)
[2018-03-27] MEDS: PANTOprazole SOD 40 MG TAB PO SCH (08:03)
[2018-03-27] MEDS: SERTRALINE HCL 50 MG TAB PO SCH (08:04)
[2018-03-27] MEDS: DORZOLAMIDE HCL 2% OPH SOLN 10 ML BTL OP SCH ×2 (08:05→21:43)
[2018-03-27] MEDS ORDERED: POTASSIUM CHLR 10 MEQ / WTR 100 ML IV STA (08:08)
--- NOTE | 2018-03-27 09:22 | Clinical Documentation Query ---
CLINICAL DOCUMENTATION QUERY 82- y/o female with suspected pancreatic cancer. She states a 5 lbs weight loss over last 3 months. She in noted to be thin by assessment. In your clinical opinion is this patient being managed for: ( ) Severe malnutrition ( ) Moderated malnutrition ( ) Mild malnutrition ( x ) Not Agree ( ) Other explanation of clinical findings (No explanation is considered a No Response) ( ) Unable to determine ( ) Need to Discuss (Phone CDS or qliq) (No discussion is considered a No Response) The medical record reflects the following clinical findings, treatment, and risk factors. Clinical Indicators: As above. 18% loss in BM in 3 months Treatment: clear liquid diet, GI consult, Risk Factors: Age, cancer, Please clarify and document your clinical opinion in the progress notes and discharge summary. Terms such as "probable", "suspected", "likely", "questionable", "possible", or "still to be ruled out" are acceptable. IF IN AGREEMENT, YOU MUST DOCUMENT ABOVE DIAGNOSTIC STATEMENT IN DAILY PROGRESS NOTES AND DISCHARGE SUMMARY. This document is not part of the patient's record. Malnutrition Characteristics (2 of 6) in Acute Illness/Injury CHARACTERISTICS MODERATE MALNUTRITION SEVERE MALNUTRITION ENERGY INTAKE <75% of estimated energyrequirement for >7 days <50% of estimated energyrequirement for >5 days WEIGHT LOSS 1-2%/1 week 5%/1 month 7.5%/3 months >1-2%/1 week >5%/1 month >7.5%/3 months BODY FAT*loss of SQ fat from the orbits,triceps, or fat overlying the ribs MILD MODERATE MUSCLE MASS*muscle wasting at the temples,clavicles, shoulders, interosseousspaces,scapula, thigh, calf MILD MODERATE FLUID ACCUMULATION*localized or generalized edemaof the extremities, vulva, scrotumweight loss may be masked byedema MILD MODERATE-SEVERE DIRECTOR SALES AND [employer] MARKETING STRENGTH N/A measurably decreased perthe device's standards Malnutrition Characteristics (2 of 6) in Chronic Illness CHARACTERISTICS MODERATE MALNUTRITION SEVERE MALNUTRITION ENERGY INTAKE <75% of estimated energyrequirement for >1 month <75% of estimated energyrequirement for >1 month WEIGHT LOSS 5%/1 month 7.5%/3 months 10%/6 months 20%/1 year > 5%/1 month >7.5%/3 months >10%/6 months >20%/1 year BODY FAT*loss of SQ fat from the orbits,triceps, or fat overlying the ribs MILD SEVERE MUSCLE MASS*muscle wasting at the temples,clavicles, shoulders, interosseousspaces,scapula, thigh, calf MILD SEVERE FLUID ACCUMULATION*localized or generalized edemaof the extremities, vulva, scrotumweight loss may be masked byedema MILD SEVERE DIRECTOR SALES AND [employer] MARKETING STRENGTH N/A measurably decreased perthe device's standards Thank You, Sky Carrington RN [phone] & via qlicCONNECT
[2018-03-27] MEDS ORDERED: LABETALOL HCL IV 5 MG/ML 20ML IV PRN (09:30)
[2018-03-27] MEDS ORDERED: ATROPINE SULFATE 0.1 MG/ML 5ML SYR IV PRN (09:30)
[2018-03-27] MEDS ORDERED: EpHEDrine SULFATE INJ 50 MG/ML AMP IV PRN (09:30)
[2018-03-27] MEDS ORDERED: MEPERIDINE HCL 25 MG/ML CARP IV PRN (09:30)
[2018-03-27] MEDS ORDERED: FENTANYL CITRATE INJ 50 MCG/1 ML 2 ML VIAL IV PRN (09:30)
[2018-03-27] MEDS ORDERED: PHENYLEPHRINE 100MCG/ML 5ML SYR IV PRN (09:30)
[2018-03-27] MEDS ORDERED: ONDANSETRON INJ 2 MG/ML 2 ML VIAL IV PRN (09:30)
[2018-03-27] MEDS ORDERED: NALOXONE HCL 0.4 MG/1 ML VIAL/CARP IV PRN (09:30)
[2018-03-27] MEDS ORDERED: HYDROmorphone INJ 2 MG/ML SYR/VIAL IV PRN (09:30)
[2018-03-27] MEDS ORDERED: FLUMAZENIL 0.1 MG/1 ML 10 ML VIAL IV PRN (09:30)
--- NOTE | 2018-03-27 09:32 | Gastroenterology Progress Note ---
Progress Note Date of Service: Mar 27, 2018 Subjective Pt evaluation today including: conversation w/ patient, physical exam, chart review, lab review, review of studies Patient is to have an ERCP today. She reports ongoing epigastric pain, but otherwise is feeling well. Denies any n/v or heartburn. Vitals stable. NPO since last evening. Potassium still slightly low at 3.4. No leukocytosis. LFTs about the same. Review of Systems Constitutional: No fever, No chills Eyes: No worsening of vision, No eye pain ENT: No hearing loss, No sore throat Respiratory: No cough, No shortness of breath Cardiac: No chest pain Abdomen: + see HPI Musculoskeletal: No joint pain, No muscle pain Female : No dysuria Neuro: No memory loss Psych: No problem reported Heme: No abnormal bleeding/bruising Endo: No excessive thirst, No excessive urination Skin: No rash, No itch Medications Current Inpatient Medications Medications (Trade) Dose Ordered Sig/Neil Route Start Time Stop Time Status Last Admin Dose Admin Ioversol (Optiray 320) 100 ml UD PRN IV 03/26/18 13:00 03/30/18 12:59 Ondansetron HCl (Zofran Inj) 4 mg Q6H PRN IV 03/26/18 13:30 04/25/18 13:29 Sodium Chloride 1,000 ml @ 80 mls/hr [id number] IV 03/26/18 13:45 04/25/18 13:44 03/27/18 02:40 80 MLS/HR Sertraline HCl (Zoloft Tab) 25 mg DAILY PO 03/27/18 08:00 04/26/18 08:59 03/27/18 08:04 25 MG Sucralfate (Carafate Tab) 1 gm HS PO 03/26/18 21:00 04/25/18 20:59 03/26/18 21:13 1 GM Sucralfate (Carafate Tab) 1 gm TIDM PO 03/26/18 17:00 04/25/18 17:59 03/26/18 17:35 1 GM Travoprost (Travatan Z) 1 drops HS OPB 03/26/18 21:00 04/25/18 20:59 03/26/18 21:13 1 DROPS Pantoprazole Sodium (Protonix Tab) 40 mg DAILY PO 03/27/18 08:00 04/26/18 08:59 03/27/18 08:03 40 MG Hydromorphone HCl (Dilaudid Inj) 0.25 mg Q6H PRN IV 03/26/18 14:00 04/09/18 13:59 03/27/18 02:45 0.25 MG Atenolol (Tenormin Tab) 25 mg QAM PO 03/27/18 08:00 04/26/18 08:59 03/27/18 08:02 25 MG Dorzolamide HCl (Trusopt 2% Oph Soln) 1 drops BID OP 03/26/18 20:00 04/25/18 20:59 03/27/18 08:05 1 DROPS Hydralazine HCl (HydrALAZINE INJ) 10 mg Q6H PRN IV. 03/26/18 18:45 04/25/18 18:44 Lorazepam (Ativan Tab) 0.25 mg HS PRN PO 03/26/18 20:45 04/25/18 20:44 Objective Vital Signs Date Time Temp Pulse Resp B/P (MAP) Pulse Ox O2 Delivery O2 Flow Rate FiO2 03/27/18 07:09 36.6 73 20 144/78 (100) 97 Room Air 03/26/18 23:07 36.7 62 18 125/66 (85) 95 Room Air 03/26/18 21:02 69 158/77 (104) 03/26/18 20:20 Room Air 03/26/18 19:36 58 191/92 (125) 03/26/18 17:15 194/95 (128) 03/26/18 15:36 36.4 61 18 177/71 96 03/26/18 14:41 03/26/18 14:22 70 201/93 96 03/26/18 13:18 177/95 96 03/26/18 12:02 67 19 201/115 96 Room Air 03/26/18 11:40 219/94 03/26/18 10:06 36.6 61 18 205/95 98 Room Air Physical Exam General Appearance: no apparent distress Eyes: + pertinent finding (icterus) ENT: hearing grossly normal Neck: supple Respiratory/Chest: lungs clear, normal breath sounds, no respiratory distress Cardiovascular: regular rate, rhythm Abdomen: normal bowel sounds, soft, no organomegaly, + tenderness (mild epigastric tenderness) Extremities: no pedal edema Neurologic/Psych: alert, normal mood/affect Skin: + jaundice Laboratory Results Last 24 Hours Test 03/26/18 10:25 03/26/18 12:26 03/26/18 16:12 03/27/18 05:30 White Blood Count 5.09 K/uL 4.68 K/uL Red Blood Count 4.56 M/uL 3.96 M/uL Hemoglobin 14.1 g/dL 12.2 g/dL Hematocrit 40.9 % 35.2 % Mean Corpuscular Volume 89.7 fL 88.9 fL Mean Corpuscular Hemoglobin 30.9 pg 30.8 pg Mean Corpuscular Hemoglobin Concent 34.5 g/dl 34.7 g/dl Platelet Count 250 K/uL 210 K/uL Mean Platelet Volume 10.6 fL 10.2 fL Neutrophils (%) (Auto) 60.3 % Lymphocytes (%) (Auto) 26.7 % Monocytes (%) (Auto) 10.4 % Eosinophils (%) (Auto) 2.2 % Basophils (%) (Auto) 0.2 % Neutrophils # (Auto) 3.07 K/uL Lymphocytes # (Auto) 1.36 K/uL Monocytes # (Auto) 0.53 K/uL Eosinophils # (Auto) 0.11 K/uL Basophils # (Auto) 0.01 K/uL RDW Standard Deviation 52.7 fL 52.0 fL RDW Coefficient of Variation 16.1 % 16.0 % Immature Granulocyte % (Auto) 0.2 % Immature Granulocyte # (Auto) 0.01 K/uL Urine Color DK YELLOW Urine Appearance CLEAR Urine pH 7.0 Urine Specific [place] 1.006 Urine Protein NEG Urine Glucose (UA) NEG Urine Ketones NEG Urine Occult Blood NEG Urine Nitrite NEG Urine Bilirubin 2+ Urine Urobilinogen NEG Urine Leukocyte Esterase MODERATE Urine WBC (Auto) 1-5 /hpf Urine RBC (Auto) 0-4 /hpf Urine Hyaline Casts (Auto) 1-5 /lpf Urine Epithelial Cells (Auto) 5-10 /lpf Urine Bacteria (Auto) NEG Sodium Level 129 mmol/L 136 mmol/L Potassium Level 3.4 mmol/L 3.4 mmol/L Chloride Level 96 mmol/L 105 mmol/L Carbon Dioxide Level 27 mmol/L 21 mmol/L Anion Gap 6.0 mmol/L 11.0 mmol/L Blood Urea Nitrogen 7 mg/dl 6 mg/dl Creatinine 0.70 mg/dl 0.47 mg/dl Est Creatinine Clear Calc Drug Dose 46.7 ml/min 68.4 ml/min Estimated GFR () 92.9 105.9 Estimated GFR (Non- 80.1 91.3 BUN/Creatinine Ratio 9.8 12.4 Random Glucose 93 mg/dl 114 mg/dl Calcium Level 8.8 mg/dl 7.9 mg/dl Magnesium Level 2.0 mg/dl Total Bilirubin 11.5 mg/dl 10.5 mg/dl Direct Bilirubin 9.5 mg/dl Aspartate Amino Transf (AST/SGOT) 247 U/L 201 U/L Alanine Aminotransferase (ALT/SGPT) 314 U/L 259 U/L Alkaline Phosphatase 583 U/L 464 U/L Total Protein 7.6 gm/dl 5.9 gm/dl Albumin 3.8 gm/dl 2.9 gm/dl Lipase 453 U/L 256 U/L Prothrombin Time 11.4 SECONDS Prothromb Time International Ratio 1.1 Globulin 3.0 gm/dl Albumin/Globulin Ratio 1.0 Assessment and Plan Patient is an 82 year old female with a hx of pancreatic IPMN, stable on MRI just in December of this year. EUS in May/2017 with FNA. Presenting with obstructive jaundice - elevated LFTs and imaging showing a significantly enlarged CBD along with biliary sludge. CT scan suggestive of HOP malignancy. -ERCP today. Will plan EUS with FNA of the pancreatic lesion next week. Please continue to monitor and correct electrolytes as appropriate. I performed a history and physical examination of the patient, including specifically soft, nontender abdomen, I have discussed the patient's management with Theresa Nguyen PA-C. Please refer to the PA's note for the documented findings and plan of care. ERCP done, CBD was decompressed and stented. Can be discharge for OP EUS next week. Please recall if any questions or concerns.
--- NOTE | 2018-03-27 10:15 | History & Physical Bridge Note ---
H&P Re-Evaluation Bridge Note: I have examined the patient, reviewed the History & Physical and in the interval since the performance of the History & Physical I have noted the following changes of clinical significance: No changes noted
[2018-03-27] MEDS ORDERED: FENTANYL CITRATE INJ 50 MCG/1 ML 2 ML VIAL ONE (10:34)
[2018-03-27] MEDS ORDERED: INDOMETHACIN 50 MG SUPP PR ONE (11:00)
[2018-03-27] MEDS ORDERED: CIPROFLOXACIN 400MG / 200ML D5W IV ONE (11:00)
[2018-03-27] MEDS ORDERED: LIDOCAINE HCL 2% 2 ML VIAL (20MG/ML) ONE (11:05)
[2018-03-27] MEDS ORDERED: PROPOFOL IV EMULSION 10 MG/ML 20 ML VIAL ONE (11:05)
[2018-03-27] MEDS ORDERED: SUCCINYLCHOLINE CHLORIDE 20 MG/ML 10 ML VIAL IV ONE (11:05)
[2018-03-27] MEDS ORDERED: EpHEDrine SULFATE INJ 50 MG/ML AMP ONE (11:06)
[2018-03-27] MEDS ORDERED: ONDANSETRON INJ 2 MG/ML 2 ML VIAL ONE (11:06)
[2018-03-27] MEDS ORDERED: DEXAMETHASONE SOD INJ 4 MG/ML VIAL ONE (11:06)
--- NOTE | 2018-03-27 12:05 | [facility] Post Operative Brief Note ---
Immediate Operative Summary Operative Date Mar 27, 2018. Pre-Operative Diagnosis Biliary Obstruction Post-Operative Diagnosis biliary obstruction and dilated bile duct Procedure(s) Performed endoscopic retrograde cholangiopancreatography, with sphincterotomy, and biliary stents placement, EGD Surgeon Dr. Field Senior Marketing Engineer Surgeon(s) none Estimated Blood Loss 0ml Findings Consistent with Post-Op Diagnosis Specimens specimens maintained by endoscopy staff Anesthesia Type General
--- NOTE | 2018-03-27 12:14 | DIAGNOSTIC IMAGING REPORT ---
ERCP BILIARY DUCTAL CLINICAL HISTORY: 82 years-old Female presenting with ERCP IN OR. TECHNIQUE: Fluoroscopy was provided for endoscopic retrograde cholangiopancreatography. 5 fluoroscopic image(s) recorded. COMPARISON: CT from 03/26/2018. FINDINGS: Procedure: Endoscope projects over the descending duodenum. A guidewire was introduced into the common bile duct. The biliary tree was opacified with contrast. Subsequently, a plastic common bile duct stent was placed. Peritoneal spillage: No evidence of peritoneal spillage of contrast. Extrahepatic bile ducts: Common bile duct dilatation with abrupt stenosis at the level of the pancreatic head. No filling defect in the common duct. Contrast does not extend into the small bowel. Intrahepatic bile ducts: Diffuse moderate intrahepatic biliary ductal dilatation. Fluoroscopy dosage (mGy): 17.4. Fluoroscopy time: 147.4 seconds. Number or time of fluoroscopic spot images: 0. IMPRESSION: Intrahepatic and extra hepatic biliary ductal dilatation with a plastic common duct stent placed. Electronically signed by: Tone Forte M.D. 03/27/2018 12:12 PM Dictated Date/Time: 03/27/2018 12:09 PM
[2018-03-27] MEDS ORDERED: NURSING VERBAL MED ORDER ONE ×3 (12:23→23:45)
--- NOTE | 2018-03-27 12:25 | GI REPORT ---
Patient Name: Kiana Gutierrez Procedure Date: 03/27/2018 12:09 PM Date of : 1935 Admit Type: Inpatient Age: 82 Gender: Female Attending MD: America Field MD Procedure: Upper GI endoscopy Providers: America Field MD Referring MD: John Diaz Md, Elena Allred Indications: Epigastric abdominal pain Medicines: General Anesthesia Complications: No immediate complications. Estimated Blood Loss: Estimated blood loss: none. Procedure: Pre-Anesthesia Assessment: - Prior to the procedure, a History and Physical was performed, and patient medications and allergies were reviewed. The patient is competent. The risks and benefits of the procedure and the sedation options and risks were discussed with the patient. All questions were answered and informed consent was obtained. Patient identification and proposed procedure were verified by the physician and the nurse in the procedure room. Mental Status Examination: alert and oriented. Airway Examination: normal oropharyngeal airway and neck mobility. Respiratory Examination: clear to auscultation. CV Examination: normal. ASA Grade Assessment: III - A patient with severe systemic disease. After reviewing the risks and benefits, the patient was deemed in satisfactory condition to undergo the procedure. The anesthesia plan was to use general anesthesia. Immediately prior to administration of medications, the patient was re-assessed for adequacy to receive sedatives. The heart rate, respiratory rate, oxygen saturations, blood pressure, adequacy of pulmonary ventilation, and response to care were monitored throughout the procedure. The physical status of the patient was re-assessed after the procedure. After obtaining informed consent, the endoscope was passed under direct vision. Throughout the procedure, the patient's blood pressure, pulse, and oxygen saturations were monitored continuously. The scope was introduced through the mouth, and advanced to the second part of duodenum. The upper GI endoscopy was accomplished without difficulty. The patient tolerated the procedure well. Findings: The examined esophagus was normal. The entire examined stomach was normal. The duodenal bulb and second portion of the duodenum were normal. Impression: - Normal esophagus. - Normal stomach. - Normal duodenal bulb and second portion of the duodenum. - No specimens collected. Recommendation: - Perform an ERCP today. America Field MD 03/27/2018 12:25:01 PM This report has been signed electronically. Note Initiated On: 03/27/2018 12:09 PM Number of Addenda: 0 I attest to the content of the Intraoperative Record and orders documented therein, exceptions below {[id number]}
--- NOTE | 2018-03-27 12:35 | GI REPORT ---
Patient Name: Kiana Gutierrez Procedure Date: 03/27/2018 10:41 AM Date of : 1935 Admit Type: Inpatient Age: 82 Gender: Female Attending MD: America Field MD Procedure: ERCP Providers: America Field MD Referring MD: John Diaz Md, Valentin Gillis DO, Lorella Thomas Indications: Biliary dilation on Computed Tomogram Scan, Jaundice, Elevated liver enzymes, Tumor of the head of pancreas Medicines: General Anesthesia Complications: No immediate complications. Estimated Blood Loss: Estimated blood loss: none. Procedure: Pre-Anesthesia Assessment: - Prior to the procedure, a History and Physical was performed, and patient medications and allergies were reviewed. The patient is competent. The risks and benefits of the procedure and the sedation options and risks were discussed with the patient. All questions were answered and informed consent was obtained. Patient identification and proposed procedure were verified by the physician and the nurse in the procedure room. Mental Status Examination: alert and oriented. Airway Examination: normal oropharyngeal airway and neck mobility. Respiratory Examination: clear to auscultation. CV Examination: normal. ASA Grade Assessment: III - A patient with severe systemic disease. After reviewing the risks and benefits, the patient was deemed in satisfactory condition to undergo the procedure. The anesthesia plan was to use general anesthesia. Immediately prior to administration of medications, the patient was re-assessed for adequacy to receive sedatives. The heart rate, respiratory rate, oxygen saturations, blood pressure, adequacy of pulmonary ventilation, and response to care were monitored throughout the procedure. The physical status of the patient was re-assessed after the procedure. After obtaining informed consent, the scope was passed under direct vision. Throughout the procedure, the patient's blood pressure, pulse, and oxygen saturations were monitored continuously.The ERCP was accomplished without difficulty. The patient tolerated the procedure well. The scope was introduced through the mouth, and advanced to the duodenum and used to inject contrast into the bile duct. Findings: The information technology consultant film was normal. The esophagus was successfully intubated under direct vision. The scope was advanced to a normal major papilla in the descending duodenum without detailed examination of the pharynx, larynx and associated structures, and upper GI tract. The upper GI tract was grossly normal. A 0.035 inch straight standard wire (Acrobat 2) was passed into the biliary tree. The Fusion OMNI sphincterotome was passed over the guidewire and the bile duct was then deeply cannulated. Contrast was injected. I personally interpreted the bile duct images. Ductal flow of contrast was adequate. Image quality was adequate. Contrast extended to the main bile duct. The main bile duct was markedly dilated. The largest diameter was 14 mm. Biliary sphincterotomy was made with a monofilament traction (standard) sphincterotome using ERBE electrocautery. There was no post-sphincterotomy bleeding. The biliary tree was swept with a 15 mm balloon starting at the bifurcation. Sludge was swept from the duct. One 8.5 Fr by 6 cm plastic stent with a single external flap and a single internal flap was placed into the common bile duct. Bile flowed through the stent. The stent was in good position. One 7 Fr by 4 cm plastic stent with a full external pigtail and a full internal pigtail was placed into the common bile duct. Bile flowed through the stent. The stent was in good position. Indomethacin 100 mg was given via suppository to decrease the risk of post-ERCP pancreatitis (PEP). PD was not cannulated nor injected. The total fluoroscopy exposure time was 2 minutes and 27 seconds. Impression: - The entire main bile duct was markedly dilated. - A biliary sphincterotomy was performed. - The biliary tree was swept and sludge was found. - Two side by side plastic stents were placed into the common bile duct. Recommendation: - Return patient to [facility] for [facility] care. - Clear liquid diet today. Advance tomorrow as tolerated. - Perform an upper endoscopic ultrasound (UEUS) with FNA of the HOP mass next week with . - Return to referring physician. America Field MD 03/27/2018 12:35:09 PM This report has been signed electronically. Note Initiated On: 03/27/2018 10:41 AM Number of Addenda: 0 I attest to the content of the Intraoperative Record and orders documented therein, exceptions below {[id number]}
--- NOTE | 2018-03-27 12:38 | Anesthesiology Progress Note ---
Anesthesia Post Op Note Date & Time Mar 27, 2018 at 12:37 Vital Signs Pain Intensity: 0.0 Vital Signs Past 12 Hours Date Time Temp Pulse Resp B/P (MAP) Pulse Ox O2 Delivery O2 Flow Rate FiO2 03/27/18 08:15 Room Air 03/27/18 07:09 36.6 73 20 144/78 (100) 97 Room Air Notes Mental Status: alert / awake / arousable, participated in evaluation Pt Amnestic to Procedure: Yes Nausea / Vomiting: adequately controlled Pain: adequately controlled Airway Patency, RR, SpO2: stable & adequate BP & HR: stable & adequate Hydration State: stable & adequate Anesthetic Complications: no major complications apparent The patient did well. She was hypertensive in the PACU so was given hydralazine. She is now at her baseline. All other vitals are stable. She is awake and comfortable.
[2018-03-27] MEDS ORDERED: HydrALAZINE HCL 20 MG/ML VIAL IV. ONE (12:45)
[2018-03-27 14:03] VITALS: BP 162/77; PULSE 69; TEMP 36.6; O2SAT 98
--- NOTE | 2018-03-27 15:49 | Progress Note ---
Subjective Date of Service: Mar 27, 2018. Subjective Pt evaluation today including: conversation w/ patient, physical exam, lab review, review of studies, review of inpatient medication list Saw/examined the patient in room 405 She's doing well, had her ERCP done earlier Denies chest pain - had some chest pain related to high blood pressure post- ERCP in the endoscopy suite No shortness of breath Minimal epigastric pain Problem List Medical Problems: (1) Elevated bilirubin Status: Acute (2) Hypertension Status: Chronic (3) Pancreatic mass Status: Acute (4) Transaminitis Status: Acute Review of Systems Constitutional: No fever, No chills Respiratory: No cough, No sputum, No shortness of breath Cardiac: No chest pain, No edema, No palpitations Abdomen: + pain (minimal), No nausea, No vomiting, No diarrhea Medications Current Inpatient Medications Medications (Trade) Dose Ordered Sig/Neil Route Start Time Stop Time Status Last Admin Dose Admin Ioversol (Optiray 320) 100 ml UD PRN IV 03/26/18 13:00 03/30/18 12:59 Ondansetron HCl (Zofran Inj) 4 mg Q6H PRN IV 03/26/18 13:30 04/25/18 13:29 Sodium Chloride 1,000 ml @ 80 mls/hr [id number] IV 03/26/18 13:45 04/25/18 13:44 03/27/18 14:03 80 MLS/HR Sertraline HCl (Zoloft Tab) 25 mg DAILY PO 03/27/18 08:00 04/26/18 08:59 03/27/18 08:04 25 MG Sucralfate (Carafate Tab) 1 gm HS PO 03/26/18 21:00 04/25/18 20:59 03/26/18 21:13 1 GM Sucralfate (Carafate Tab) 1 gm TIDM PO 03/26/18 17:00 04/25/18 17:59 03/26/18 17:35 1 GM Travoprost (Travatan Z) 1 drops HS OPB 03/26/18 21:00 04/25/18 20:59 03/26/18 21:13 1 DROPS Pantoprazole Sodium (Protonix Tab) 40 mg DAILY PO 03/27/18 08:00 04/26/18 08:59 03/27/18 08:03 40 MG Hydromorphone HCl (Dilaudid Inj) 0.25 mg Q6H PRN IV 03/26/18 14:00 04/09/18 13:59 03/27/18 02:45 0.25 MG Atenolol (Tenormin Tab) 25 mg QAM PO 03/27/18 08:00 04/26/18 08:59 03/27/18 08:02 25 MG Dorzolamide HCl (Trusopt 2% Oph Soln) 1 drops BID OP 03/26/18 20:00 04/25/18 20:59 03/27/18 08:05 1 DROPS Hydralazine HCl (HydrALAZINE INJ) 10 mg Q6H PRN IV. 03/26/18 18:45 04/25/18 18:44 Lorazepam (Ativan Tab) 0.25 mg HS PRN PO 03/26/18 20:45 04/25/18 20:44 Ondansetron HCl (Zofran Inj) 4 mg ONE PRN IV 03/27/18 09:30 Labetalol HCl (Normodyne IV) 5 mg Q5M PRN IV 03/27/18 09:30 Objective Vital Signs Date Time Temp Pulse Resp B/P (MAP) Pulse Ox O2 Delivery O2 Flow Rate FiO2 03/27/18 14:03 36.6 69 18 162/77 (105) 98 Nasal Cannula 2.0 03/27/18 13:45 36.7 64 18 157/81 97 Nasal Cannula 2 03/27/18 13:30 70 14 149/77 97 Nasal Cannula 2 03/27/18 13:15 66 18 162/79 98 Nasal Cannula 2 03/27/18 13:05 66 19 154/78 99 Nasal Cannula 2 03/27/18 12:55 68 16 160/76 99 Nasal Cannula 2 03/27/18 12:45 36.6 67 12 163/78 97 Nasal Cannula 2 03/27/18 12:35 69 19 176/80 100 Oxymask 10 03/27/18 12:25 59 19 209/98 100 Oxymask 10 03/27/18 12:15 36.0 68 16 210/94 100 Oxymask 10 03/27/18 08:15 Room Air 03/27/18 07:09 36.6 73 20 144/78 (100) 97 Room Air 03/26/18 23:07 36.7 62 18 125/66 (85) 95 Room Air 03/26/18 21:02 69 158/77 (104) 03/26/18 20:20 Room Air 03/26/18 19:36 58 191/92 (125) 03/26/18 17:15 194/95 (128) Physical Exam General Appearance: no apparent distress Respiratory/Chest: chest non-tender, lungs clear, normal breath sounds, no respiratory distress, no accessory muscle use Cardiovascular: regular rate, rhythm, no edema, no murmur Abdomen: normal bowel sounds, non tender, soft Laboratory Results Last 24 Hours Test 03/26/18 16:12 03/27/18 05:30 White Blood Count 4.68 K/uL Red Blood Count 3.96 M/uL Hemoglobin 12.2 g/dL Hematocrit 35.2 % Mean Corpuscular Volume 88.9 fL Mean Corpuscular Hemoglobin 30.8 pg Mean Corpuscular Hemoglobin Concent 34.7 g/dl RDW Standard Deviation 52.0 fL RDW Coefficient of Variation 16.0 % Platelet Count 210 K/uL Mean Platelet Volume 10.2 fL Sodium Level 136 mmol/L Potassium Level 3.4 mmol/L Chloride Level 105 mmol/L Carbon Dioxide Level 21 mmol/L Anion Gap 11.0 mmol/L Blood Urea Nitrogen 6 mg/dl Creatinine 0.47 mg/dl Est Creatinine Clear Calc Drug Dose 68.4 ml/min Estimated GFR () 105.9 Estimated GFR (Non- 91.3 BUN/Creatinine Ratio 12.4 Random Glucose 114 mg/dl Calcium Level 7.9 mg/dl Total Bilirubin 10.5 mg/dl Aspartate Amino Transf (AST/SGOT) 201 U/L Alanine Aminotransferase (ALT/SGPT) 259 U/L Alkaline Phosphatase 464 U/L Total Protein 5.9 gm/dl Albumin 2.9 gm/dl Globulin 3.0 gm/dl Albumin/Globulin Ratio 1.0 Lipase 256 U/L Assessment and Plan Patient is an 82 year old female with a past medical history of pancreatic IPMN , HTN, HLD, depression, osteoporosis - presents with jaundice Transaminitis and Jaundice in the setting if Pancreatic IPMN - s/p ERCP - biliary stents and sphincterectomy performed; biliary sludge removed - patient states she feels better - plan for clears today (03/27) - advance diet on 03/28 - outpatient EUS as outpatient next week HTN - blood pressure has been labile - will continue current regimen and monitor overnight Depression - continue home medications DVT ppx - SCDs FULL CODE
[2018-03-27] MEDS: ACYCLOVIR 5% OINT 15 GM TUBE EXT SCH ×2 (18:07→21:43)
[2018-03-27] MEDS: TRAVOPROST Z 0.004% OPH SOLN 2.5 ML BTL OPB SCH (21:43)
[2018-03-27] MEDS ORDERED: ACETAMINOPHEN 325 MG TAB PO PRN (22:15)
[2018-03-27 22:36] VITALS: BP 172/74
[2018-03-27] MEDS ORDERED: AMLODIPINE BESYLATE 5 MG TAB PO ONE (23:15)
[2018-03-28 00:06] VITALS: BP 150/76; PULSE 61; TEMP 36.7; O2SAT 98
[2018-03-28 07:16] VITALS: BP 162/77; PULSE 63; TEMP 36.7; O2SAT 94
[2018-03-28 07:36] LABS: HEMATOCRIT 32.9 % (37-47); HEMOGLOBIN 11.2 g/dL (12.0-16.0); MEAN CELL VOLUME 89.9 fL (80-100); MEAN CORPUSCULAR HEMOGLOBIN 30.6 pg (25-34); MEAN PLATELET VOLUME 10.7 fL (7.4-10.4); PLATELET COUNT 201 K/uL (130-400); RED CELL DISTRIBUTION WIDTH CV 16.1 % (11.5-14.5); WHITE BLOOD COUNT 6.22 K/uL (4.8-10.8)
[2018-03-28 08:00] VITALS: O2SAT 94
[2018-03-28] MEDS: SUCRALFATE 1 GM TAB PO SCH (08:00)
[2018-03-28] MEDS ORDERED: AMLODIPINE BESYLATE 5 MG TAB PO ONE (08:15)
[2018-03-28 08:25] LABS: ALBUMIN 2.7 gm/dl (3.4-5.0); CALCIUM 7.9 mg/dl (8.5-10.1); CREATININE 0.42 mg/dl (0.60-1.20); POTASSIUM 3.1 mmol/L (3.5-5.1); TOTAL PROTEIN 5.6 gm/dl (6.4-8.2)
[2018-03-28] MEDS: SERTRALINE HCL 50 MG TAB PO SCH (08:52)
[2018-03-28] MEDS: PANTOprazole SOD 40 MG TAB PO SCH (08:53)
[2018-03-28] MEDS: DORZOLAMIDE HCL 2% OPH SOLN 10 ML BTL OP SCH (08:53)
[2018-03-28] MEDS: ACYCLOVIR 5% OINT 15 GM TUBE EXT SCH (08:54)
--- NOTE | 2018-03-28 10:11 | Gastroenterology Progress Note ---
Gastroenterology Progress Note Patient was seen and examined today, feels better, no abdominal pain, tolerated PO diet. She was noted to have bleeding from an external hemorrhoid yesterday while giving her the suppositories. Labs: reviewed Bili down to 3 Recommendations: Hemorrhoidal cream bid for 7 days. She is scheduled for OP EUS on Friday. Please recall GI if any questions or concerns.
[2018-03-28] MEDS ORDERED: POTASSIUM CHLORIDE 20 MEQ TABCR PO STA (11:00)
[2018-03-28] MEDS ORDERED: POTASSIUM CHLR 10 MEQ / WTR 100 ML IV SCH (11:30)
[2018-03-28] MEDS ORDERED: POTASSIUM CHLORIDE PWD 20 MEQ PACK PO ONE (11:30)
--- NOTE | 2018-03-28 11:49 | Progress Note ---
Subjective Date of Service: Mar 28, 2018. Subjective Pt evaluation today including: conversation w/ patient, physical exam, lab review, review of studies, review of inpatient medication list Saw/examined the patient in room 405 She's doing well, tolerated diet, no abdominal pain Eager to go home, denies any other symptoms at this time Problem List Medical Problems: (1) Elevated bilirubin Status: Acute (2) Hypertension Status: Chronic (3) Pancreatic mass Status: Acute (4) Transaminitis Status: Acute Review of Systems Constitutional: No fever, No chills Cardiac: No chest pain Abdomen: No pain, No nausea, No vomiting, No diarrhea Medications Current Inpatient Medications Medications (Trade) Dose Ordered Sig/Neil Route Start Time Stop Time Status Last Admin Dose Admin Ioversol (Optiray 320) 100 ml UD PRN IV 03/26/18 13:00 03/30/18 12:59 Ondansetron HCl (Zofran Inj) 4 mg Q6H PRN IV 03/26/18 13:30 04/25/18 13:29 Sodium Chloride 1,000 ml @ 80 mls/hr [id number] IV 03/26/18 13:45 04/25/18 13:44 03/27/18 23:38 80 MLS/HR Sertraline HCl (Zoloft Tab) 25 mg DAILY PO 03/27/18 08:00 04/26/18 08:59 03/28/18 08:52 25 MG Sucralfate (Carafate Tab) 1 gm HS PO 03/26/18 21:00 04/25/18 20:59 03/27/18 21:44 1 GM Sucralfate (Carafate Tab) 1 gm TIDM PO 03/26/18 17:00 04/25/18 17:59 03/26/18 17:35 1 GM Travoprost (Travatan Z) 1 drops HS OPB 03/26/18 21:00 04/25/18 20:59 03/27/18 21:43 1 DROPS Pantoprazole Sodium (Protonix Tab) 40 mg DAILY PO 03/27/18 08:00 04/26/18 08:59 03/28/18 08:53 40 MG Hydromorphone HCl (Dilaudid Inj) 0.25 mg Q6H PRN IV 03/26/18 14:00 04/09/18 13:59 03/27/18 02:45 0.25 MG Atenolol (Tenormin Tab) 25 mg QAM PO 03/27/18 08:00 04/26/18 08:59 03/28/18 08:53 25 MG Dorzolamide HCl (Trusopt 2% Oph Soln) 1 drops BID OP 03/26/18 20:00 04/25/18 20:59 03/28/18 08:53 1 DROPS Hydralazine HCl (HydrALAZINE INJ) 10 mg Q6H PRN IV. 03/26/18 18:45 04/25/18 18:44 Lorazepam (Ativan Tab) 0.25 mg HS PRN PO 03/26/18 20:45 04/25/18 20:44 Ondansetron HCl (Zofran Inj) 4 mg ONE PRN IV 03/27/18 09:30 Labetalol HCl (Normodyne IV) 5 mg Q5M PRN IV 03/27/18 09:30 Acyclovir (Zovirax 5% Oint) 1 appln QID EXT 03/27/18 17:14 04/06/18 17:13 03/28/18 08:54 1 APPLN Acetaminophen (Tylenol Tab) 325 mg Q6H PRN PO 03/27/18 22:15 04/26/18 22:14 03/27/18 22:21 325 MG Amlodipine Besylate (Norvasc Tab) 2.5 mg HS PO 03/28/18 21:00 04/27/18 20:59 Potassium Chloride (Klor-Con Pwd) 20 meq NOW ONCE PO 03/28/18 11:30 03/28/18 11:31 UNV Objective Vital Signs Date Time Temp Pulse Resp B/P (MAP) Pulse Ox O2 Delivery O2 Flow Rate FiO2 03/28/18 08:00 94 Room Air 03/28/18 07:16 36.7 63 18 162/77 (105) 94 03/28/18 00:15 Room Air 03/28/18 00:06 36.7 61 18 150/76 (100) 98 Room Air 03/27/18 22:36 172/74 (106) 03/27/18 16:00 Room Air 03/27/18 14:03 36.6 69 18 162/77 (105) 98 Nasal Cannula 2.0 03/27/18 13:45 36.7 64 18 157/81 97 Nasal Cannula 2 03/27/18 13:30 70 14 149/77 97 Nasal Cannula 2 03/27/18 13:15 66 18 162/79 98 Nasal Cannula 2 03/27/18 13:05 66 19 154/78 99 Nasal Cannula 2 03/27/18 12:55 68 16 160/76 99 Nasal Cannula 2 03/27/18 12:45 36.6 67 12 163/78 97 Nasal Cannula 2 03/27/18 12:35 69 19 176/80 100 Oxymask 10 03/27/18 12:25 59 19 209/98 100 Oxymask 10 03/27/18 12:15 36.0 68 16 210/94 100 Oxymask 10 Physical Exam General Appearance: no apparent distress Cardiovascular: regular rate, rhythm, no edema, no murmur Abdomen: normal bowel sounds, non tender, soft Laboratory Results Last 24 Hours Test 03/28/18 07:05 White Blood Count 6.22 K/uL Red Blood Count 3.66 M/uL Hemoglobin 11.2 g/dL Hematocrit 32.9 % Mean Corpuscular Volume 89.9 fL Mean Corpuscular Hemoglobin 30.6 pg Mean Corpuscular Hemoglobin Concent 34.0 g/dl RDW Standard Deviation 53.0 fL RDW Coefficient of Variation 16.1 % Platelet Count 201 K/uL Mean Platelet Volume 10.7 fL Sodium Level 140 mmol/L Potassium Level 3.1 mmol/L Chloride Level 108 mmol/L Carbon Dioxide Level 23 mmol/L Anion Gap 8.0 mmol/L Blood Urea Nitrogen 5 mg/dl Creatinine 0.42 mg/dl Est Creatinine Clear Calc Drug Dose 76.5 ml/min Estimated GFR () 109.9 Estimated GFR (Non- 94.8 BUN/Creatinine Ratio 11.6 Random Glucose 94 mg/dl Calcium Level 7.9 mg/dl Total Bilirubin 3.8 mg/dl Aspartate Amino Transf (AST/SGOT) 128 U/L Alanine Aminotransferase (ALT/SGPT) 206 U/L Alkaline Phosphatase 367 U/L Total Protein 5.6 gm/dl Albumin 2.7 gm/dl Globulin 2.9 gm/dl Albumin/Globulin Ratio 0.9 Lipase 254 U/L Assessment and Plan Patient is an 82 year old female with a past medical history of pancreatic IPMN , HTN, HLD, depression, osteoporosis - presents with jaundice Transaminitis and Jaundice in the setting if Pancreatic IPMN 03/28 - appreciate GI input - can likely d/c today - will replace K - outpatient EUS - outpatient PCP follow-up and repeat potassium levels - Anusol cream BID x7 days 03/27 - s/p ERCP - biliary stents and sphincterectomy performed; biliary sludge removed - patient states she feels better - plan for clears today (03/27) - advance diet on 03/28 - outpatient EUS as outpatient next week HTN - blood pressure has been labile - will continue current regimen and monitor overnight Depression - continue home medications DVT ppx - SCDs FULL CODE
[2018-03-28] MEDS ORDERED: HYDR2.5C37 TOP (11:51)
[2018-03-28] MEDS ORDERED: ATEN-173 PO (11:51)
[2018-03-28] MEDS ORDERED: NRV5 PO (11:51)
--- NOTE | 2018-03-28 12:00 | Discharge Instructions ---
Discharge Instructions Date of Service Mar 28, 2018. Admission Reason for Admission: Jaundice Discharge Discharge Diagnosis / Problem: Obstructive Jaundice, Pancreatic Cyst Discharge Goals Goal(s): Decrease discomfort, Improve function, Diagnostic testing, Therapeutic intervention Activity Recommendations Activity Limitations: resume your previous activity . Instructions / Follow-Up Instructions / Follow-Up Please follow-up with Dr. Allred on April 03 at 10:45AM * We have added amlodipine because of your high blood pressure - primary care doctor should recheck blood pressure * Your dose of atenolol is increased from 12.5mg to 25mg * Primary care doctor should recheck potassium as an outpatient * You will get an EUS (endoscopic ultrasound) as an outpatient on March 31 Current Hospital Diet Patient's current hospital diet: Low Fat Diet Discharge Diet Recommended Diet: Low Fat Diet Procedures Procedures Performed: endoscopic retrograde cholangiopancreatography, with sphincterotomy, and biliary stents placement, EGD Pending Studies Studies pending at discharge: no Medical Emergencies . Who to Call and When: Medical Emergencies: If at any time you feel your situation is an emergency, please call 911 immediately. . Non-Emergent Contact Non-Emergency issues call your: Primary Care Provider, Compliance Officer . . "Provider Documentation" section prepared by John Diaz. .
--- NOTE | 2018-03-28 12:01 | Discharge Summary ---
Discharge Summary Date of Service Mar 28, 2018. Discharge Summary Admission Date: Mar 26, 2018 at 13:24 Discharge Date: Mar 28, 2018 Discharge Disposition: Home Principal Diagnosis: Transaminitis and Jaundice in the setting if Pancreatic IPMN HTN Depression Medication Reconciliation New Medications: Hydrocortisone 2.5% (Rectal) (Anusol-Hc 2.5%) 2.5 % Cre 1 APPLN TOP BID for 7 Days, #30 GM 1 Refill Amlodipine Besylate (Amlodipine Besylate) 5 Mg Tab 2.5 MG PO DAILY for 30 Days, #30 TAB Changed Medications: Atenolol (Tenormin) 25 Mg Tab 25 MG PO QAM for 30 Days, #30 TAB (Changed from: 12.5 MG) Continued Medications: Atorvastatin (Lipitor) 10 Mg Tab 10 MG PO HS, TAB Dorzolamide Hcl (Trusopt Oph) 2 % Marlin 1 DROPS OP BID, #30 ML 3 Refills Lorazepam (Ativan) 1 Mg Tab 1 MG PO HS, TAB Multiple Minerals W/ Vitamins (Citracal Plus) 1 Tab Tab 1 TAB PO DAILY Multiple Vitamins W/ Minerals (Preservision Areds) 1 Cap Cap 1 CAP PO DAILY Pantoprazole (Protonix) 20 Mg Tab 20 MG PO DAILY, #30 TAB Sertraline (Zoloft) 25 Mg Tab 25 MG PO DAILY, TAB Sucralfate (Carafate) 1 Gm Tab 1 GM PO TIDM, TAB Sucralfate (Carafate) 1 Gm Tab 1 GM PO HS, TAB Travoprost (Travatan Z) 0.004 % Gaudencio 1 DROPS OPB HS, #1 BTL 5 Refills Admission Information HPI (per Admitting provider): 82-year-old female who presents the ED with jaundice. Patient reports her son initially noted the jaundice about 2 weeks ago however did not mention anything to her. Whenever he saw her last night, he noted the jaundice was much worse. 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 She reports she has been having upper abdominal pain for the past several months. She has been treated for GERD. She reports a 20 pound weight loss over the past 10 years and more recently 5 pounds over the past 3 months. She feels like her appetite has been okay. She has been eating blander foods secondary to being diagnosed with GERD. She has chronic loose stools and has noted that her stools have been white over the past few days. She denies nausea vomiting. Abdominal pain will sometimes radiate up into the chest however patient denies other forms of chest pain and shortness of breath. No lightheadedness, dizziness, diaphoresis, syncopal events. No fevers chills. She denies any urinary symptoms. In the ED, patient was found to have a transaminitis. Liver US showing 2 adjacent hypoechoic masses within the head and body the pancreas, Moderate to severe bile duct dilatation, Borderline gallbladder wall thickening with gallbladder sludge. Patient was given IVF. GI has already evaluated the patient in the ED. Physical Exam (per Admitting): General Appearance: no apparent distress, + thin Head: normocephalic, atraumatic Eyes: normal inspection, EOMI, + pertinent finding (Sclera icterus) ENT: hearing grossly normal, + pertinent finding (Mucous members dry) Neck: supple, no JVD, trachea midline Respiratory/Chest: lungs clear, normal breath sounds, no respiratory distress Cardiovascular: regular rate, rhythm, no edema, normal peripheral pulses Abdomen/GI: normal bowel sounds, soft, no organomegaly, + tenderness (Upper abdomen) Extremities/Musculoskelatal: normal inspection, no calf tenderness, normal capillary refill Neurologic/Psych: no motor/sensory deficits, alert, normal mood/affect, oriented x 3 Skin: warm/dry, + jaundice Hospital Course Patient is an 82 year old female with a past medical history of pancreatic IPMN , HTN, HLD, depression, osteoporosis - presents with jaundice Transaminitis and Jaundice in the setting if Pancreatic IPMN 03/28 - appreciate GI input - can likely d/c today - will replace K - outpatient EUS - outpatient PCP follow-up and repeat potassium levels - Anusol cream BID x7 days 03/27 - s/p ERCP - biliary stents and sphincterectomy performed; biliary sludge removed - patient states she feels better - plan for clears today (03/27) - advance diet on 03/28 - outpatient EUS as outpatient next week HTN - blood pressure has been labile - will continue current regimen and monitor overnight Depression - continue home medications DVT ppx - SCDs FULL CODE Total time spent on discharge = 50 minutes This includes examination of the patient, discharge planning, medication reconciliation, and communication with other providers. Discharge Instructions Please follow-up with Dr. Allred on April 03 at 10:45AM * We have added amlodipine because of your high blood pressure - primary care doctor should recheck blood pressure * Your dose of atenolol is increased from 12.5mg to 25mg * Primary care doctor should recheck potassium as an outpatient * You will get an EUS (endoscopic ultrasound) as an outpatient on March 31
[2018-03-28 12:28] VITALS: BP 162/77; PULSE 63; TEMP 36.7; O2SAT 94
[2018-03-28] MEDS ORDERED: AMLODIPINE BESYLATE 5 MG TAB PO SCH (21:00)
[2018-03-30] MEDS ORDERED: CALC500T85 PO (09:41)
[2018-03-30] MEDS ORDERED: MULT60CA PO (09:41)
[2018-03-30] MEDS ORDERED: AMLO5TAB3 PO (09:41)
[2018-03-31] MEDS ORDERED: MISCCAP80 (12:39)
== END 2018-03-28 13:16 | disposition home or self-care (01) | DRG 438 ==
LOC: C.EDB 10:04 → C.4E 13:24 → ENRESERV 14:00
PROVIDERS: ADMIT Internal Medicine; ATTEND Family Medicine
PROC: 0DJ08ZZ Inspection of Upper Intestinal Tract, Via Natural or Artificial Opening Endoscopic (ICD-10-PCS; principal; 2018-03-27 10:15)
PROC: 0F798DZ Dilation of Common Bile Duct with Intraluminal Device, Via Natural or Artificial Opening Endoscopic (ICD-10-PCS; 2018-03-27 10:15)
PROC: 0FC98ZZ Extirpation of Matter from Common Bile Duct, Via Natural or Artificial Opening Endoscopic (ICD-10-PCS; 2018-03-27 10:15)
DX: D13.6 Benign neoplasm of pancreas (principal); K83.1 Obstruction of bile duct; R17 Unspecified jaundice; K86.9 Disease of pancreas, unspecified; R74.0 Nonspecific elevation of levels of transaminase and lactic acid dehydrogenase [LDH]; K21.9 Gastro-esophageal reflux disease without esophagitis; F32.9 Major depressive disorder, single episode, unspecified; H40.9 Unspecified glaucoma; M81.0 Age-related osteoporosis without current pathological fracture; I10 Essential (primary) hypertension; H35.30 Unspecified macular degeneration

== ENCOUNTER → 2018-03-31 | Day surgery (SDC) | payer OTHER ==
[2018-03-30 09:42] VITALS: BMI 19.0
[~2018-03-31] VITALS: Ht 157.5 cm; Wt 45.5 kg
[~2018-03-31] MED LIST: AMLO5TAB3 PO; ATEN-173 PO; ATOR10TA82 PO; ATROPINE SULFATE 0.1 MG/ML 5ML SYR IV PRN; ATV/1 PO; CALC500T85 PO; CIPROFLOXACIN 400MG / 200ML D5W IV ONE; CIPROFLOXACIN 400MG / 200ML D5W ONE; DORZ2SOL19 OP; EpHEDrine SULFATE INJ 50 MG/ML AMP IV PRN; HydrALAZINE HCL 20 MG/ML VIAL ONE; LACTATED RINGER'S 1000ML 1,000 ML IV ONE; LACTATED RINGER'S 1000ML 1,000 ML IV SCH; LIDOCAINE HCL 2% 2 ML VIAL (20MG/ML) ONE; MISCCAP80; MULT-663 PO; MULT60CA PO; NURSING VERBAL MED ORDER ONE; ONDANSETRON INJ 2 MG/ML 2 ML VIAL IV PRN; PROPOFOL IV EMULSION 10 MG/ML 20 ML VIAL ONE; PRT/20 PO; SERT25TA PO; SUCR1TAB29 PO; TRAV0.00 OPB
[2018-03-31 12:39] VITALS: BP 178/85; PULSE 58; TEMP 36.7; O2SAT 99; Ht 157.5 cm; Wt 45.5 kg
--- NOTE | 2018-03-31 12:48 | Endo History and Physical ---
History & Physical Date of Service: Mar 31, 2018. Chief Complaint: Abnormal CT Referring Physician: History of Present Illness The patient has a history of and I PMN. Her last MRI in January showed no change. Unfortunately she developed worsening abdominal discomfort and jaundice several weeks ago. CT scan from last week did show enlargment of the lesion. She underwent ERCP without any initial complications. She presents today for scopic ultrasound for further evaluation. Past Surgical History Hx Cardiac Surgery: No Hx Abdominal Surgery: Yes (appy 1945; hernia repair 1973) Hx Post-Op Nausea and Vomiting: No Hx Cancer Surgery: No Hx Thoracic Surgery: No Hx Orthopedic: No Hx Urinary Tract Surgery: No Social History Smoking Status: Never Smoker Hx Substance Use: No Hx Alcohol Use: No Allergies Coded Allergies: Lisinopril (Unverified Adverse Reaction, Unknown, cough , 03/31/18) Current Medications Reported Home Medications Medications Dose Route/Sig Max Daily Dose Days Date Category Probiotic (Probiotic Product) 1 Cap Cap 03/31/18 Reported Preservision Areds 2 (Multiple Vitamins W/ Minerals) 1 Cap Cap 1 Cap PO BID 03/30/18 Reported Ra Calcium (Calcium) 500 Mg Tab 500 Mg PO QAM 03/30/18 Reported Norvasc (Amlodipine Besylate) 5 Mg Tab 2.5 Mg PO QAM 03/30/18 Reported Tenormin (Atenolol) 25 Mg Tab 25 Mg PO QAM 30 03/28/18 Rx Trusopt Oph (Dorzolamide Hcl) 2 % Marlin 1 Drops OP BID 03/26/18 Reported Citracal Plus (Multiple Minerals W/ Vitamins) 1 Tab Tab 1 Tab PO QAM 03/26/18 Reported Carafate (Sucralfate) 1 Gm Tab 1 Gm PO HS 03/26/18 Reported Carafate (Sucralfate) 1 Gm Tab 1 Gm PO TIDM 03/26/18 Reported Zoloft (Sertraline HCl) 25 Mg Tab 25 Mg PO QAM 03/26/18 Reported Ativan (Lorazepam) 1 Mg Tab 1 Mg PO HS 03/26/18 Reported Travatan Z (Travoprost) 0.004 % Gaudencio 1 Drops OPB HS 03/26/18 Reported Lipitor (Atorvastatin Calcium) 10 Mg Tab 10 Mg PO HS 03/26/18 Reported Protonix (Pantoprazole Sodium) 20 Mg Tab 20 Mg PO QAM 03/26/18 Reported Vital Signs Weight (Kilograms): 46.82 Height (Feet): 5 Height (Inches): 1.5 Physical Exam General Appearance: no apparent distress Respiratory/Chest: Auscultation: breath sounds normal Cardiovascular: Heart Auscultation: RRR, II/ JAXSON Abdomen: Inspection & Palpation: soft Assessment and Plan Patient with a history of an IPMNs which may have undergone malignant degeneration over the last few months. We are planning to do endoscopic ultrasound for further evaluation. We have discussed the risks of the procedure to bleeding, infection, perforation, pain and insufficient cellularity. Given the patient's presentation we will likely recommend that she be seen by surgical oncologist to determine if this may be resectable.
--- NOTE | 2018-03-31 13:54 | GI REPORT ---
Patient Name: Kiana Leon Procedure Date: 03/31/2018 1:31 PM Date of : 1935 Admit Type: Outpatient Age: 82 Gender: Female Attending MD: Valentin Colon DO Procedure: Upper GI endoscopy Providers: Valentin Colon DO Referring MD: America iFeld Md, Elena Allred Indications: Epigastric abdominal pain, Abnormal CT of the GI tract Medicines: Monitored Anesthesia Care Complications: No immediate complications. Estimated blood loss: Minimal. Estimated Blood Loss: Estimated blood loss was minimal. Procedure: Pre-Anesthesia Assessment: - Prior to the procedure, a History and Physical was performed, and patient medications, allergies and sensitivities were reviewed. The patient's tolerance of previous anesthesia was reviewed. - The risks and benefits of the procedure and the sedation options and risks were discussed with the patient. All questions were answered and informed consent was obtained. - Patient identification and proposed procedure were verified prior to the procedure by the physician, the nurse and the offset printing pressmen. The procedure was verified in the procedure room. - Pre-procedure physical examination revealed no contraindications to sedation. - ASA Grade Assessment: III - A patient with severe systemic disease. - After reviewing the risks and benefits, the patient was deemed in satisfactory condition to undergo the procedure. - The anesthesia plan was to use monitored anesthesia care (MAC). After obtaining informed consent, the endoscope was passed under direct vision. Throughout the procedure, the patient's blood pressure, pulse, and oxygen saturations were monitored continuously. The scope was introduced through the mouth, and advanced to the second part of duodenum. The upper GI endoscopy was accomplished without difficulty. The patient tolerated the procedure well. Findings: The examined esophagus was normal. The Z-line was regular and was found 37 cm from the incisors. Diffuse moderate inflammation characterized by erythema and granularity was found in the entire examined stomach. Biopsies were taken with a cold forceps for histology. Estimated blood loss was minimal. The duodenal bulb and 3rd part of the duodenum were normal. Two previously placed biliary pancreatic stents were seen in the area of the papilla. Impression: - Normal esophagus. - Z-line regular, 37 cm from the incisors. - Gastritis. Biopsied. - Normal duodenal bulb and 3rd part of the duodenum. - Biliary pancreatic stents in the duodenum. Recommendation: - Await pathology results. - Perform an upper endoscopic ultrasound (UEUS) today. Valentin Colon D.O. Valentin Colon, 03/31/2018 1:54:03 PM This report has been signed electronically. Note Initiated On: 03/31/2018 1:31 PM Number of Addenda: 0 I attest to the content of the Intraoperative Record and orders documented therein, exceptions below {[id number]}
--- NOTE | 2018-03-31 14:17 | [facility] Post Operative Brief Note ---
Immediate Operative Summary Operative Date Mar 31, 2018. Pre-Operative Diagnosis Pancreatic Mass Post-Operative Diagnosis 32 mm pancreatic mass Procedure(s) Performed upper endoscopy endoscopic ultrasound Surgeon Dr. Zenon Colon Rod Puller And Coiler Surgeon(s) none Estimated Blood Loss None Findings Consistent with Post-Op Diagnosis Specimens 1) Gastric biopsies 2) pancreatic head biopsies Drains None Anesthesia Type MAC Complication(s) none Disposition Accompanied Pt To Recover: no Disposition: Recovery Room / PACU
--- NOTE | 2018-03-31 14:34 | GI REPORT ---
Patient Name: Kiana Leon Procedure Date: 03/31/2018 1:33 PM Date of : 1935 Admit Type: Outpatient Age: 82 Gender: Female Attending MD: Valentin Colon DO Procedure: Upper EUS Providers: Valentin Colon DO Referring MD: America Field Md, Elena Allred Indications: Suspected mass in pancreas on CT scan Medicines: Monitored Anesthesia Care, Cipro 400 mg IV Complications: No immediate complications. Estimated blood loss: Minimal. Estimated Blood Loss: Estimated blood loss was minimal. Procedure: Pre-Anesthesia Assessment: - Prior to the procedure, a History and Physical was performed, and patient medications, allergies and sensitivities were reviewed. The patient's tolerance of previous anesthesia was reviewed. - The risks and benefits of the procedure and the sedation options and risks were discussed with the patient. All questions were answered and informed consent was obtained. - Patient identification and proposed procedure were verified prior to the procedure by the physician, the nurse and the joy operator helper. The procedure was verified in the procedure room. - Pre-procedure physical examination revealed no contraindications to sedation. - ASA Grade Assessment: III - A patient with severe systemic disease. - After reviewing the risks and benefits, the patient was deemed in satisfactory condition to undergo the procedure. - The anesthesia plan was to use monitored anesthesia care (MAC). After obtaining informed consent, the endoscope was passed under direct vision. Throughout the procedure, the patient's blood pressure, pulse, and oxygen saturations were monitored continuously. The Endosonoscope was introduced through the mouth, and advanced to the second part of duodenum. The upper EUS was accomplished without difficulty. The patient tolerated the procedure well. Findings: Endosonographic Finding : A stent was see in the region of the ampulla. Moderate hyperechoic material consistent with sludge was visualized endosonographically in the gallbladder. One stent was visualized endosonographically in the common bile duct. Extension of the stent was noted in the common bile duct. Intrahepatid ductal dilation No lymphadenopathy seen. There was no sign of significant endosonographic abnormality in the left adrenal gland. No adrenal gland enlargement was identified. A rounded mass was identified in the pancreatic head. The mass was hypoechoic and appeared solid. The mass measured 32 mm by 26 mm in maximal cross-sectional diameter. The endosonographic borders were well-defined. There was sonographic evidence suggesting invasion into the portal vein (manifested by abutment). An intact interface was seen between the mass and the superior mesenteric artery and celiac trunk suggesting a lack of invasion. The remainder of the pancreas was examined. The endosonographic appearance of parenchyma and the upstream pancreatic duct indicated duct dilation, parenchymal atrophy and several cystic lesions in the pancreatic body. Fine needle aspiration for cytology was performed. Color Doppler imaging was utilized prior to needle puncture to confirm a lack of significant vascular structures within the needle path. Four passes were made with the 22 gauge needle using a transduodenal approach. A stylet was used. A otr owner operator truck driver was present and performed a preliminary cytologic examination. Final cytology results are pending. Estimated blood loss was minimal. Impression: - Hyperechoic material consistent with sludge was visualized endosonographically in the gallbladder. - One stent was visualized endosonographically in the common bile duct. - Endosonographic images of the left adrenal gland were unremarkable. - A mass was identified in the pancreatic head. This was staged T3 N0 M0 by endosonographic criteria. The staging applies if malignancy is confirmed. Fine needle aspiration performed. Recommendation: - Discharge patient to home (ambulatory). - Advance diet as tolerated today. - Await cytology results. - Cipro (ciprofloxacin) 500 mg PO BID for 3 days. - Surgical oncology referral. Valentin Colon D.O. Valentin Colon DO 03/31/2018 2:34:07 PM This report has been signed electronically. Note Initiated On: 03/31/2018 1:33 PM Number of Addenda: 0 I attest to the content of the Intraoperative Record and orders documented therein, exceptions below {[id number]}
--- NOTE | 2018-03-31 14:36 | Discharge Instructions ---
Endoscopy Patient Instructions Date / Procedure(s) Performed Mar 31, 2018. Other (Endoscopic ultrasound) Allergy Information Coded Allergies: Lisinopril (Unverified Adverse Reaction, Unknown, cough , 03/31/18) Discharge Date / Findings Mar 31, 2018. 32 mm pancreatic mass, fine-needle aspiration performed No lymphadenopathy seen No liver mass is seen Medication Instructions Reported Home Medications Medications Dose Route/Sig Max Daily Dose Days Date Category Probiotic (Probiotic Product) 1 Cap Cap 03/31/18 Reported Preservision Areds 2 (Multiple Vitamins W/ Minerals) 1 Cap Cap 1 Cap PO BID 03/30/18 Reported Ra Calcium (Calcium) 500 Mg Tab 500 Mg PO QAM 03/30/18 Reported Norvasc (Amlodipine Besylate) 5 Mg Tab 2.5 Mg PO QAM 03/30/18 Reported Tenormin (Atenolol) 25 Mg Tab 25 Mg PO QAM 30 03/28/18 Rx Trusopt Oph (Dorzolamide Hcl) 2 % Marlin 1 Drops OP BID 03/26/18 Reported Citracal Plus (Multiple Minerals W/ Vitamins) 1 Tab Tab 1 Tab PO QAM 03/26/18 Reported Carafate (Sucralfate) 1 Gm Tab 1 Gm PO HS 03/26/18 Reported Carafate (Sucralfate) 1 Gm Tab 1 Gm PO TIDM 03/26/18 Reported Zoloft (Sertraline HCl) 25 Mg Tab 25 Mg PO QAM 03/26/18 Reported Ativan (Lorazepam) 1 Mg Tab 1 Mg PO HS 03/26/18 Reported Travatan Z (Travoprost) 0.004 % Gaudencio 1 Drops OPB HS 03/26/18 Reported Lipitor (Atorvastatin Calcium) 10 Mg Tab 10 Mg PO HS 03/26/18 Reported Protonix (Pantoprazole Sodium) 20 Mg Tab 20 Mg PO QAM 03/26/18 Reported Provider Instructions Activity Restrictions - No exercising or heavy lifting for 24 hours. - Do not drink alcohol the day of the procedure. - Do not drive a car or operate machinery until the day after the procedure. - Do not make any important decisions or sign important papers in 24 hours after the procedure. Following Day: - Return to full activity which may include returning to work/school. Diet Start your diet with liquids and light foods (jello, soup, juice, toast). Then eat your usual diet if not nauseated. Treatment For Common After Affects For mild abdominal pain, bloating, or excessive gas: - Rest - Eat lightly - Lie on right side Follow-Up Information Cipro 500 mg twice daily x 3 days Surgical Oncology referral Await pathology results CT of the Chest to be arranged. Anesthesia Information What You Should Know You have had a procedure that required some medicine to reduce anxiety and discomfort. This treatment is called moderate sedation. After receiving the treatment, you may be sleepy, but you will be able to breathe on your own. The effects of the treatment may last for several hours. Follow these instructions along with Activity/Diet recommendations noted above: * Do NOT do anything where dizziness or clumsiness would be dangerous. * Rest quietly at home today, then you can be up and about tomorrow. * Have a responsible person stay with you the rest of today. * You may have had an I.V. today. If so, you may take the dressing off later today. Recommendations Call your doctor if: * Trouble breathing * Continuous vomiting for more than 24 hours * Temperature above 101 degrees * Severe abdominal pain or bloating * Pain not relieved by pain medicine ordered * There is increased drainage or redness from any incision * A large amount of rectal bleeding greater than 2-3 tablespoons. (If you had a polyp/s removed or have hemorrhoids, a small amount of blood - from the rectum is to be expected.) * You have any unanswered questions or concerns. IN THE EVENT OF A SERIOUS EMERGENCY, GO TO THE NEAREST EMERGENCY ROOM Your discharge instructions were prepared by provider Valentin Colon. Patient Instructions Signature Page Kiana Leon Patient (or Guardian) Signature/Date: I have read and understand the instructions given to me by my caregivers. Caregiver/RN/Doctor Signature/Date: The above-named patient and/or guardian has received patient instructions on this date. + Original Patient Signature Page (only) stays with chart. Please make copy for patient.
--- NOTE | 2018-03-31 15:16 | Anesthesiology Progress Note ---
Anesthesia Post Op Note Date & Time Mar 31, 2018 at 15:15 Vital Signs Pain Intensity: 0 Vital Signs Past 12 Hours Date Time Temp Pulse Resp B/P (MAP) Pulse Ox O2 Delivery O2 Flow Rate FiO2 03/31/18 15:08 56 16 98 03/31/18 15:08 56 16 03/31/18 15:06 152/65 03/31/18 15:03 56 16 03/31/18 15:03 56 16 98 03/31/18 15:01 181/78 03/31/18 15:00 37.5 99 Room Air 03/31/18 14:58 57 23 03/31/18 14:58 57 23 99 03/31/18 14:57 56 16 99 03/31/18 14:57 56 16 03/31/18 14:56 168/78 03/31/18 14:52 52 18 98 03/31/18 14:52 52 18 03/31/18 14:51 184/79 03/31/18 14:50 52 18 98 03/31/18 14:50 51 18 03/31/18 14:46 189/79 03/31/18 14:45 52 15 03/31/18 14:45 52 15 99 03/31/18 14:44 53 22 03/31/18 14:44 53 22 99 03/31/18 14:42 188/84 03/31/18 14:39 54 21 03/31/18 14:39 55 21 100 03/31/18 14:37 210/78 03/31/18 14:35 204/87 03/31/18 14:34 48 17 100 03/31/18 14:34 49 17 03/31/18 14:32 196/88 03/31/18 14:29 48 23 03/31/18 14:29 47 23 100 03/31/18 14:28 188/84 03/31/18 14:26 182/78 03/31/18 14:25 160/69 03/31/18 14:24 48 19 03/31/18 14:24 53 19 100 03/31/18 14:24 36.9 47 18 160/69 100 Oxymask 10 03/31/18 12:39 36.7 58 20 178/85 (116) 99 Room Air Notes Mental Status: alert / awake / arousable, participated in evaluation Pt Amnestic to Procedure: Yes Nausea / Vomiting: adequately controlled Pain: adequately controlled Airway Patency, RR, SpO2: stable & adequate BP & HR: stable & adequate Hydration State: stable & adequate Anesthetic Complications: no major complications apparent
[2018-03-31 15:20] VITALS: BP 165/73; PULSE 57; TEMP 36.9; O2SAT 98
[2018-03-31 15:49] VITALS: BP 167/73; PULSE 58; O2SAT 9; O2SAT 98
[2018-03-31 16:20] VITALS: BP 180/72; PULSE 57; TEMP 36.8; O2SAT 97
== END | disposition home or self-care (01) ==
LOC: C.ACU 12:07
PROVIDERS: ATTEND Internal Medicine Gastroenterology
DX: K29.50 Unspecified chronic gastritis without bleeding (principal); K86.9 Disease of pancreas, unspecified; R93.3 Abnormal findings on diagnostic imaging of other parts of digestive tract; I10 Essential (primary) hypertension; Z88.8 Allergy status to other drugs, medicaments and biological substances; Z79.899 Other long term (current) drug therapy